=== PATIENT | female | born 1985 | race Caucasian/White ===

== ENCOUNTER 2023-09-04 12:48 | Inpatient (IN) ==
[2023-09-04] MEDS ORDERED: OXYTOCIN 30 UNITS/NSS 30 UNITS/500 ML BAG IV PRN (13:08)
[2023-09-04] MEDS ORDERED: LIDOCAINE 1% LOCAL 20 ML VIAL INFIL PRN (13:08)
[2023-09-04] MEDS ORDERED: DINOPROSTONE 10 MG INSERT PV ONE (13:08)
[2023-09-04] MEDS ORDERED: LACTATED RINGER'S 1,000 ML IV PRN (13:08)
[2023-09-04 13:37] LABS: Hematocrit (blood only) 34.7 % (37.0-47.0); Hemoglobin 12.3 g/dl (12.0-16.0); Mean Corpuscular Hemoglobin 30.7 pg (25.0-34.0); Mean Corpuscular Hgb Conc 35.4 g/dL (32.0-36.0); Mean Corpuscular Volume 86.5 fL (80.0-100.0); Mean Platelet Volume 9.8 fL (9.4-12.4); Platelet Count 273 K/uL (130-400); RDW Coefficient of Variation 13.6 % (11.5-14.5); RDW Standard Deviation 42.5 fL (36.4-46.3); Red Blood Count 4.01 M/uL (4.20-5.40); White Blood Count 12.02 K/ul (4.8-10.8)
[2023-09-04 13:54] LABS: Albumin Globulin Ratio 1.3 (0.9-2); Albumin Level 3.4 gm/dl (3.4-5.0); BUN Creatinine Ratio 12.5 (10-20); Bilirubin,Total 0.5 mg/dl (0.2-1.0); Calcium 8.6 mg/dl (8.6-10.3); Creatinine Clr Calc Pharmacy 171.6 ml/min; Est GFR (African American) 133.1 ml/min; Est GFR (Non-African American) 114.8 ml/min; Globulin 2.7 gm/dl (2.5-4.0); Potassium 3.7 mmol/L (3.5-5.1); Total Protein 6.1 gm/dl (6.0-8.3)
--- NOTE | 2023-09-04 14:45 | History & Physical Report ---
Date of Service September 04, 2023 Assessment & Plan (1) Chronic hypertension during , antepartum: Plan: 37-year-old -0-1-2 at 37 weeks and 3 days of gestation who has a history of chronic hypertension, on labetalol, GDM A1, diet-controlled gestational michelle betes, PE in 2017 history of macrosomic babies, current baby large for gestational age. She was in the office for routine OB visit and US for growth, her blood pressure was elevated and KEMI was 3.1 cm. Vital signs stable afebrile, heart rate reassuring, Cervix unfavorable, GBS positive, Plan to admit, monitor, labs, cervical ripening with Cervidil, recommended SCDs while in the bed patient desires to ambulate is much as she can, start penicillin when in labor Continue to monitor closely (2) Gestational diabetes mellitus (GDM): (3) LGA (large for gestational age) fetus affecting mother, antepartum: (4) Oligohydramnios: (5) Obesity affecting in third trimester, antepartum: (6) Factor 5 Leiden mutation, heterozygous: (7) History of pulmonary embolism: Admission and Anticipated Discharge Date Admission Date: September 04, 2023 History of Present Illness Primary Care Provider: NO PCP Patient is a 37-year-old -0-1-2 at 37 weeks and 3 days of gestation who has a history of chronic hypertension, on labetalol, GDM A1, diet-controlled gestational diabetes, PE in 2017 history of macrosomic babies, current baby large for gestational age. She was in the office for routine OB visit and US for growth, her blood pressure was elevated and KEMI was 3.1 cm. She had no symptoms of headache, change in her vision, nausea vomiting, epigastric or right upper quadrant pain, chest pain, shortness of breath. She was sent here for IOL. EFW was 3700+ gr She denies contractions, leakage of fluid, vaginal bleeding. She reports good movements. Her has been complicated by, 1. Chronic hypertension, on labetalol 100 mg 3 times daily, 2. GDM A1, diet-controlled, 3. History of macrosomia, delivered 10.15 ounce baby in 2008, current infant with estimated weight of 3700 g today, 4. History of PE in 2017, patient was told cannot confirm or rule out PE at the ER, she has not had anything else since then, she has been on Lovenox and was recently switched to heparin 10,000 units twice a day last dose was given last night, 5. GBS + 6. Obesity during Allergies Allergy/AdvReac Type Severity Reaction Status Date / Time No Known Allergies Allergy Unknown NONE Verified 08/29/09 20:44 Home Medications Medication Instructions Recorded Confirmed Type Multivit/Min/Iron/Fol Ac/Pren 1 tab PO DAILY ##0 08/29/09 History ( Vitamin) heparin (porcine) 10,000 unit/mL 10,000 unit subcut Q12H 09/04/23 09/04/23 History injection solution labetalol 100 mg tablet 200 mg PO BID 09/04/23 09/04/23 History Patient History Medical History (Updated 09/04/23 @ 14:43 by Lindsay Castelan MD) Factor 5 Leiden mutation, heterozygous Chronic hypertension affecting Social History Smoking Status: Never smoker Second Hand Exposure: No; Do You Dip or Chew Tobacco: No; Tobacco Cessation Education Requested by Patient: No Hx Alcohol Use: No Hx Substance Use: No Preferred Language: Surinamese Communication Ability: Effective 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 Beliefs That Will Affect Care: None marital status: Single Current Living Situation Comment: [facility], 4 children Other Information That Helps Us Care for You: No Feels Safe at Home: Yes Safety Concerns: Feels Safe At This Time Assistive Devices: Contacts OB History Full-term 's in 2006, 2008, no history of shoulder dysplasia [employer] History No history of STDs, no history of chlamydia, venular, herpes Review of Systems as per Subjective / HPI Physical Exam Constitutional: WD/WN, vitals as above well developed, well nourished, + obese and comfortable Gastrointestinal (Abdomen): normal bowel sounds, soft, nontender, no hepatosplenomegaly (Gravid) Genitourinary: normal external appearance OB Exam Abdomen: + vertex Manual OB Exam: + cervical dilation 1 cm, + cervical effacement 20% and + station high OB Exam Monitor Tracing: + external uterine monitor used and + category I Results & Data Vital Signs (Past 12 Hours) Vital Signs Temp Pulse Resp BP 09/04/23 13:20 37.0 C 16 133/83 09/04/23 13:12 82 133/83 (2) Gestational diabetes mellitus (GDM) Gestational diabetes mellitus control: diet-controlled Trimester: third trimester Qualified Code(s): O24.410 - Gestational diabetes mellitus in , diet controlled
[2023-09-04] MEDS: LABETALOL HCL 200 MG TAB PO SCH (21:12)
--- OUTSIDE RECORDS SUMMARY | 2023-09-04 21:29 | External Medical Summary | Summary of Care ---
Author Name Unknown Organization [facility] Address [address] [place] [address] Phone [phone] Care Team Providers Care Sign Carpenter Name Role Phone Florence Fajardo PA-C Primary Care Provider [phone] Encounter Details Date Type Department Care Team (Late st Contact Info) Description 09/04/2023 8:00 AM EST Office Visit [facility], [address] [place] [address] Shereen Koo, DO [address] [place], [place] [id number] Excessive growth affecting management of in third trimester, single or unspecified fetus*; Multigravida of advanced maternal age in third trimester; Chronic hypertension in ; Diet controlled gestational diabetes mellitus (GDM), antepartum Allergies Active Allergy Reactions Criticality Noted Date Comments Bee Venom 11/30/2014 documented as of this encounter (statuses as of 09/04/2023) Medications Medication Sig Dispensed Refills Start Date End Date Status 19 29-1 MG Oral Tablet Chewable Take by mouth. 0 Active Aspirin 81 MG Oral Tablet Chewable (Aspirin 81)Indications:Sup ervision of high-risk , unspecified trimester,Obesity in , antepartum Take 1 Tablet by mouth in the morning. Start taking this medication at 12 weeks gestation and continue until delivery. 3 03/28/2023 Active Comfort Touch BP Cuff/LargeIndicati ons:HTN, goal below 140/90 Use as directed. 1 Each 0 03/28/2023 Active OneTouch Verio Flex System w/Device KitIndications:Ges tational diabetes mellitus (GDM) in second trimester, gestational diabetes method of control unspecified Use to test blood sugars 4 times daily (fasting, 1 hour after breakfast, lunch, and dinner) 1 Kit 0 04/25/2023 Active Omeprazole 20 MG Oral Capsule Delayed Release (PriLOSEC) Take 1 Capsule by mouth in the morning. 30 minutes before having anything to eat.. 90 Capsule 0 06/09/2023 Active Aspirin 81 MG Oral Capsule Take by mouth. 0 Active FreeStyle Test In Vitro Strip (Glucose Blood)Indications: Diet controlled gestational diabetes mellitus (GDM) in third trimester Use to test blood sugar 4 times a day (fasting, one hour after breakfast, lunch, and dinner) 200 Strip 3 07/14/2023 Active FreeStyle Unistick II LancetsIndications :Diet controlled gestational diabetes mellitus (GDM) in third trimester Use to test blood sugar 4 times a day (fasting, one hour after breakfast, lunch, and dinner) 200 Each 3 07/14/2023 Active Enoxaparin Sodium 40 MG/0.4ML Injection Solution Prefilled Syringe (Lovenox)Indicatio ns:History of pulmonary embolism,Factor V Leiden mutation affecting (HCC) Inject 1 syringe every 12 hours as instructed by the [facility] 24 mL 5 07/24/2023 Active Additional Information Patient not taking.Reported on 09/04/2023 Heparin Sodium (Porcine) 07287 UNIT/ML Injection SolutionIndication s:History of pulmonary embolism,Factor V Leiden mutation affecting (HCC) Inject 1 mL under the skin in the morning and 1 mL before bedtime. As instructed by the [facility]madin [facility]. 60 mL 1 08/22/2023 Active Syringe/Needle (Disp) 26G X 5/8" 3 MLIndications:Hist ory of pulmonary embolism,Factor V Leiden mutation affecting (HCC) Use as instructed to inject heparin twice daily 60 Each 1 08/22/2023 Active Labetalol HCl 100 MG Oral Tablet (Normodyne)Indicat ions:Supervision of high-risk , unspecified trimester,Chronic hypertension in ,HTN, goal below 140/90 Take 1 Tablet by mouth in the morning and 1 Tablet at noon and 1 Tablet before bedtime. 60 Tablet 6 08/27/2023 Active documented as of this encounter (statuses as of 09/04/2023) Active Problems Problem Noted Date Diagnosed Date LGA (large for gestational a ge) fetus affecting mother, antepartum 09/04/2023 GBS (group B Streptococcus c arrier), +RV culture, currently 08/31/2023 LGA (large for gestational a ge) fetus affecting management of mother 07/11/2023 Overview: EFW and AC >99th %ile at 29 weeks Last Assessment & Plan: EFW today at 91%ile, 3701g. BPP 05/06. However, KEMI decreased at 3.2 cm with MPV just at 2 cm. Based on advanced gestational age, additional comorbidities, and now low KEMI, recommend delivery in the next 1-2 days. Case discussed with Dr. Thurman, who has an appt with the patient to follow MFM scan. Renee is comfortable with this plan. GDM (gestational diabetes mellitus) 04/25/2023 Overview: Diagnosed at 18 weeks Nutrition consult scheduled 07/30/23 [facility] Lab Results Component Value Date/Time 50-G GESTATIONAL GLUCOSE, 1 HOUR - [facility] 130 (H) 04/14/2023 02:29 PM 100-G GESTATIONAL GLUCOSE, 1 HOUR - [facility] 193 (H) 04/25/2023 09:35 AM 100-G GESTATIONAL GLUCOSE, 2 HOUR - [facility] 177 (H) 04/25/2023 10:34 AM 100-G GESTATIONAL GLUCOSE, 3 HOUR - [facility] 105 04/25/2023 11:33 AM 100-G GESTATIONAL GLUCOSE, FASTING - [facility] 98 (H) 04/25/2023 08:30 AM 07/14/23 ordered hemoglobin A1c 07/14/23: MFM ADAPT consult complete. Enrolled in [employer]. Instructions provided to report blood sugars each week for MFM review 07/28/23-stable 08/05/23- hardly any numbers reported- msged sent to patient 08/11/23- not many numbers reported, msged patient 08/18/23- msged patient for sugars 08/25/23- msged patient to send sugars 09/01/23: RPM not reporting blood sugars to [facility] for review; message sent to OB provider Last Assessment & Plan: Nor reporting sugars. Chronic hypertension in 03/28/2023 Overview: Patient states her BP has been up and down since teenage years In past , hospital social worker noted that BP was increased when awake, but lowered when sleeping Officially diagnosed in 2018, but has never been on any BP medication Currently checking home BP daily-- running 138/86 On Labetalol HCl 100 mg BID BP Readings from Last 8 Encounters: 03/28/23 158/96 02/20/23 152/92 03/15/22 128/70 09/09/19 163/93 05/07/19 134/96 11/08/18 140/90 11/17/17 130/86 11/13/17 144/84 Last Assessment & Plan: Considerations: Women with chronic hypertension during are at significantly increased risk for morbidity. Signs and symptoms of superimposed pre-eclampsia were reviewed; instructed patient to contact primary OB care provider if these symptoms occur. Recommendations: Obtain baseline lab work LAURA (if not already done) with assessment of proteinuria (24-hour urine protein or zzhzibg-te-nrpfkroori ratio) and CBC, serum AST/ALT/creatinine. If patient has had hypertension for 10 years or more, obtain an EKG and eye exam (if not performed within the past year). Recommend initiation of aspirin (81mg) daily, from 13 weeks until delivery, to decrease the risk of superimposed preeclampsia. Daily home blood pressure monitoring, especially in the second half of the . o It may be useful to have the patient validate their home device with their primary OB care provider's office. Patients with BP less than 140/90 maintained with antihypertensives should continue medication during . Discontinuation of SUNG inhibitors or angiotensin type II receptor antagonists under the guidance of the primary care physician prior to conception of or upon knowledge of . Initiate or adjust antihypertensive medication if BP is 140/90 or greater on at least two occasions at least 4 hours apart and refer patient back to Maternal- Medicine. Titrate medication to maintain blood pressure in a goal range 120-140/70-90. o Labetalol and Nifedipine are considered safe for use in and these agents are considered as first-line therapy when indicated. Maternal Medicine ultrasound for anatomy at 19-20 weeks. surveillance as follows: o If being treated with anti-hypertensives: - Maternal- Medicine ultrasound for growth every 4 weeks starting at 24-26 weeks - surveillance weekly starting at 32 weeks gestation Delivery should be individualized based on blood pressure control and assessment of patient risk and is indicated as follows: For those on anti-hypertensive medications: - Between 37 0/7 and 39 6/7 weeks Supervision of high-risk , unspecified trimester 02/20/2023 AMA (advanced maternal age) multigravida 35+ Overview: Patient will be age 37 at delivery NIPT: declines Genetic referral: declines at this time MFM anatomy scan scheduled 05/02/2023 Last Assessment & Plan: CONSIDERATIONS: We reviewed the most pertinent aspects of the following: Advanced maternal age (AMA) refers to a woman with a dougherty who will be at the age of 35 or older at the estimated time of delivery and may be associated with increased morbidity. After discussion of the genetic screening/testing options, the patient declines genetic screening and testing. In addition to the risk of chromosomal abnormalities, there is an increased risk of congenital/structural anomalies. RECOMMENDATIONS: Recommend MFM anatomy ultrasound at 19-20 weeks gestation. Factor V Leiden mutation affecting Overview: Images from the original note were not included. 10/28/2017: Patient reports she was hospitalized for pneumonia. She possibly had a pulmonary embolism while hospitalized. Renee's mother mentioned that Renee's maternal uncle has Leiden Factor V Patient was tested at that time and was positive for Leiden Factor V mutation 11/04/2017: FACTOR V LEIDEN,PCR POSITIVE HETEROZYGOUS Comment: INTERPRETATION: Factor V Leiden mutation detected by real-time PCR (Amplified Probe). The patient is heterozygous. Molecular analysis has detected the [id number] mutation associated with factor V Leiden. This mutation eliminates the protein C cleavage-site in factor V, thus altering the coagulation cascade. Resistance to activated protein C is inherited as an autosomal dominant trait. Heterozygotes carry a 5-10 fold increase risk of venous thrombosis, while homozygotes carry a 50-100 fold increased risk. Laboratory recommendation is that the patient seeks follow-up by a [facility] and/or genetic counseling for further evaluation. This assay was verified and performance characteristics determined by the [facility]. This test is used for clinical purposes. .............................................. Ref:Emma Burton,Jose Enrique Cabrales,Shaheen Gilliam,Arianna Crockett, Kaelyn Lilly,YaneR. Molecular Detection of a Common Mutation in Coagulation Factor V Causing Thrombosis via Hereditary Resistance to Activated Protein C. Diagn. Mol. Pathol. 4(3): 191-197, 1994. Last Assessment & Plan: Renee is taking Lovenox daily. Obesity in , antepartum 02/20/2023 Overview: BMI: 40.4 NST 34 wks, deliver by GUILLERMO, growth q4 Class 3 obesity Taking ASA 81mg PO daily Early 1 hour GTT ordered but not yet completed No results found for: 50-G GESTATIONAL GLUCOSE, 100-G GESTATIONAL GLUCOSE, HEMOGLOBIN A1C - [facility] Baseline Preeclampsia Labs Lab Results Component Value Date/Time PLATELET AUTO - [facility] 344 02/20/2023 02:53 PM CREATININE - [facility] 0.6 02/20/2023 02:53 PM AST - [facility] 16 02/20/2023 02:53 PM ALT - [facility] 28 02/20/2023 02:53 PM PROTEIN/ CREATININE RATIO, URINE - [facility] 59 02/20/2023 03:10 PM Last Assessment & Plan: I reviewed the ultrasound. The overall estimated weight is consistent with the 97th percentile for the gestational age and the anatomy that was visualized appears unremarkable. The amniotic fluid volume is normal at 9 cm. The biophysical profile is 6/8, -2 for no breathing. The patient had an elevated blood pressure and she was sent to [facility] for evaluation. Because of fetus is large for gestational age, we will bring her back in 5 weeks when she will be 38 weeks of gestation for an evaluation of growth. History of macrosomia in inf ant in prior , currently 02/20/2023 Overview: First : 4338g, Second : 4961g Denies hx of GDM or shoulder dystocia, both Last Assessment & Plan: EFW today at 99%ile. Needs GDM management. Factor V Leiden mutation 11/10/2017 Multiple atypical nevi 01/12/2015 Overview: ICD-10 update of inactive term Bee sting allergy History of pulmonary embolism Overview: Pt questions this diagnosis. CT 10/2017 shows "1. Small nonocclusive filling defect noted in the right upper lobe pulmonary artery branch. Additional small pulmonary emboli cannot be excluded. Contrast opacification of the pulmonary arteries is suboptimal. 2. Bilateral lower lobe patchy alveolar consolidation. In appropriate clinical setting, pneumonia is a consideration. 3. Patchy ground-glass opacity in the right upper lobe and right middle lobe. Diagnostic considerations would include infectious or inflammatory etiology." Repeat CT 11/2017 negative for pulmonary embolism. Was on Xarelto following hospital discharge in 2018; discontinued this soon after We recommend prophylactic anticoagulant therapy during antepartum period of any subsequent pregnancies. Prophylactic dose anticoagulation is recommended for 6-8 weeks . We therefore recommend thrombophilia workup if not already done (to include Factor V Leiden mutation, Prothrombin gene mutation, free Protein S activity, functional Protein C activity, Antithrombin III activity, IgG and IgM Anticardiolipin antibodies, IgG and IgM anti beta2 glycoprotein antibodies, Lupus anticoagulant). Last Assessment & Plan: CONSIDERATIONS: Explained that women who have a history of VTE in a previous , a history of VTE while taking estrogen-containing contraception or an unprovoked VTE with no hypercoagulable state may have as high as a 6% risk for developing VTE in a subsequent . RECOMMENDATIONS: We recommend prophylactic anticoagulant therapy during antepartum period of any subsequent pregnancies. Prophylactic dose anticoagulation is recommended for 6-8 weeks . We therefore recommend thrombophilia workup if not already done (to include Factor V Leiden mutation, Prothrombin gene mutation, free Protein S activity, functional Protein C activity, Antithrombin III activity, IgG and IgM Anticardiolipin antibodies, IgG and IgM anti beta2 glycoprotein antibodies, Lupus anticoagulant). Estimated Date of Delivery Comme nts Yes 09/22/2023 Based on last me nstrual period of 12/16/2022 (Exact Date) documented as of this encounter (statuses as of 09/04/2023) Resolved Problems Problem Noted Date Diagnosed Date Resolved Date Glucose intolerance of 04/15/2023 04/25/2023 Supervision of high risk pre gnancy in second trimester 04/02/2023 04/02/2023 Pulmonary embolism and infarction 11/03/2017 05/07/2019 Pneumonia of both lungs due to infectious organism 11/03/2017 03/15/2022 Gastroesophageal reflux disease 11/03/2017 03/15/2022 HTN, goal below 140/90 11/03/201703/15 documented as of this encounter (statuses as of 09/04/2023) Immunizations Name Administration Dates Next Due DTaP Dipth/Tet/Acell Pertussis (Infanrix), Peds 02/29/1992,06/18/1988,06/13/1987, 987,01/25/1987 IPV - Polio Virus Vaccine (Inact) 1991,06/18/1988,06/13/1987, 987,01/25/1987 Measles Vaccine 02/29/1992,03/01/1988 Mumps Vaccine 02/29/1992,03/01/1988 PPD 03/15/2022, 6,05/16/2015, 992,09/18/1987 Rubella Vaccine 02/29/1992,03/01/1988 documented as of this encounter Social History Tobacco Use Types Packs/Day Years Used Date Smoking Tobacco: Never Smokeless Tobacco: Never Alcohol Use Standard Drinks/Week Comments Not Currently 0 (1 standard drink = 0.6 oz pur e alcohol) PHQ-2 Answer Date Recorded PHQ-2 Score 0 08/02/2018 Hunger Vital Sign Answer Date Recorded Within the past 12 months, y ou worried that your food would run out before you got the money to buy more. Never true 02/21/20 23 Within the past 12 months, t he food you bought just didn't last and you didn't have money to get more. Never true 02/20/2023 Lackey Depression Scale Answer Date Recorded Lackey Depression Scale Total 1 02/20/2023 The thought of harming myself has occurred to me . Never 02/20/2023 Estimated Date of Delivery Comme nts Yes 09/22/2023 Based on last me nstrual period of 12/16/2022 (Exact Date) Sex and Gender Information Value Date Recorded Sex Assigned at Female 02/20/2023 2:04 PM EDT Gender Identity Female 02/20/2023 2:04 PM EDT Sexual Orientation Straight 02/20/2023 2: 04 PM EDT Job Start Date Occupation Industry Not on file Not on file Not on file documented as of this encounter Functional Status Functional Status Response Date of Assess ment Are you deaf or do you have serious difficulty h earing? No 10/28/2017 Are you blind or do you have serious difficulty seeing, even when wearing glasses? No 10/28/2017 Do you have serious difficul ty walking or climbing stairs? (5 years old or older) No 10/28/2017 Do you have difficulty dress ing or bathing? (5 years old or older) No 10/28/2017 Because of a physical, menta l, or emotional condition, do you have difficulty doing errands alone such as visiting a doctor s office or shopping? (15 years old or older) No 10/28/19 18 Cognitive Status Response Date of Assessm ent Because of a physical, menta l, or emotional condition, do you have serious difficulty concentrating, remembering, or making decisions? (5 years old or older) No 10/28/2017 documented as of this encounter Progress Notes * Shereen Koo, DO - 09/04/2023 9:13 AM EST MATERNAL MEDICINE VISIT Patient location: CLINIC. I was not in a hospital or clinic location. After connecting through televideo, patient was verified with two unique identifiers. Patient (or authorized legal training representative) was then informed that this was a Telemedicine visit and being conducted confidentially over secure lines. My office door was closed. No one else was in the room with me. Patient acknowledged consent and understanding of privacy and security of the Telemedicine visit, and gave permission to have atelemedicine presenter stay in the room in order to assist with the history and to conduct the examas needed. I informed the patient that I have reviewed their record in [facility] and presented the opportunity for them to ask any questions regarding the visit today. The patient agreed to participate. Renee Caldwell presented today at 37w3d for an ultrasound and follow-up of her high risk . She was seen for the following indications: Problem List Items Addressed This Visit Endocrine/Metabolic GDM (gestational diabetes mellitus) Nor reporting sugars. Circulatory Chronic hypertension in Other AMA (advanced maternal age) multigravida 35+ LGA (large for gestational age) fetus affecting management of mother - Primary EFW today at 91%ile, 3701g. BPP 05/06. However, KEMI decreased at 3.2 cm with MPV just at 2 cm. Based on advanced gestational age, additional comorbidities, and now low KEMI, recommend delivery in the next 1-2 days. Case discussed with Dr. Thurman, who has an appt with the patient to follow MFM scan. Renee is comfortable with this plan. We reviewed today's ultrasound findings. Patient presented for growth assessment at 37w 4d. Large AC noted at >99% with overall EFW of 3701 g at 91%. KEMI 3.2 cm. Cephalic presentation. (For full details, please refer to ultrasound report provided separately). Ms. Caldwell's questions were answered to her satisfaction. She was advised to contact our officeor her OB provider for any additional questions regarding her . RECOMMENDATIONS: Follow up with MFM for ultrasound as clinically indicated. Delivery in the next 1-2 days. Thank you for allowing us to participate in the care of this patient. Please call with any questions. I spent a total of 25 minutes on the date of service in preparation, delivery, and documentation ofthe care provided to Renee Caldwell excluding any time spent in the performance of separately billed services. Shereen Koo DO 09/04/2023 9:13 AM documented in this encounter Miscellaneous Notes * Assessment & Plan Note - Shereen Koo DO - 09/04/2023 9:12 AM EST Associated Problem(s): GDM (gestational diabetes mellitus) Nor reporting sugars. * Assessment & Plan Note - Shereen Koo DO - 09/04/2023 9:12 AM EST Associated Problem(s): LGA (large for gestational age) fetus affecting management of mother EFW today at 91%ile, 3701g. BPP 05/06. However, KEMI decreased at 3.2 cm with MPV just at 2 cm. Based on advanced gestational age, additional comorbidities, and now low KEMI, recommend delivery in the next 1-2 days. Case discussed with Dr. Thurman, who has an appt with the patient to follow MFM scan. Renee is comfortable with this plan. documented in this encounter Plan of Treatment Upcoming Encounters Date Type Department Care Team (Late st Contact Info) Description 09/04/2023 10:30 AM EST Office Visit [facility] [address] [place] [address] Erin Thurman MD [address] [place] [address] [place] [id number] 37 weeks gestation of *; High-risk in third trimester; Chronic hypertension in ; HTN, goal below 140/90; History of pulmonary embolism; Multigravida of advanced maternal age in third trimester; Factor V Leiden mutation affecting (HCC); Obesity in , antepartum; History of macrosomia in infant in prior , currently ; Diet controlled gestational diabetes mellitus (GDM) in third trimester; Excessive growth affecting management of , antepartum, single or unspecified fetus; GBS (group B Streptococcus carrier), +RV culture, currently 09/09/2023 1:45 PM EST [facility] [address] [place] [address] Carmen Vyas CRNP [address] [place] [address] [facility] [address] [place] [address] 09/16/2023 1:45 PM EST Office Visit Gynecology/Obstetri Libra Issa [address] [place], [place] [address] Carmen Vyas CRNP [address] [place] [address] [facility] [address] [place], [place] [address] 09/23/2023 9:45 AM EST Office Visit Gynecology/Obstetri L[facility]ira Issa [address] [place] [address] Carmen Vyas CRNP [address] [place] [address] [facility] [address] [place], [place] [address] Health Maintenance Due Date Last Done Comments Hepatitis B (1 of 3 - 3-dose series) 1986 COVID-19 Vaccine (#1) 05/25/1987 DTaP,Tdap,and Td Vaccines (6 - Tdap) 1997 02/29/1992, 06/18/1988, 06/13/1987, Additional history exists HPV/Co-Test 2016 Depression Screening 09/30/2018 09/30/2017 Influenza Vaccine (FLU shot) (#1) 2023 11/10/2017 (Declined) GFR 08/27/2024 08/27/2023, 11/0 05/2023, 02/20/2023, Additional history exists Cervical Cancer Screening 03/15/2025 Pap Smear 03/15/2025 03/15/2022, 04/11/2016 Diabetes Screening 08/27/2026 08/27/2023, 1 10/07/2022, 08/07/2023, Additional history exists GARDASIL-HPV IMMUNIZATION SERIES Aged Out No longer eligible based on patient's age to complete this topic MENINGOCOCCAL (MENACTRA/MENVEO) Aged Out No longer eligible based on patient's age to complete this topic Pneumococcal Vaccine: Pediatrics (0 to 5 Years) and At-Risk Patients (6 to 64 Years) Aged Out No longer eligible based on patient's age to complete this topic documented as of this encounter Medical Devices Not on filedocumented as of this encounter Visit Diagnoses Diagnosis 37 weeks gestation of - Primary state, incidental High-risk in third trimester Chronic hypertension in Benign essential hypertension complicating , childbirth, and the puerperium, unspecified as to episode of care HTN, goal below 140/90 Unspecified essential hypertension History of pulmonary embolism Personal history of pulmonary embolism Multigravida of advanced maternal age in third trimester Factor V Leiden mutation affecting (HCC) Obesity in , antepartum Obesity complicating , childbirth, or the puerperium, antepartum condition or complication History of macrosomia in in prior , currently with other poor obstetric history Diet controlled gestational diabetes mellitus (GDM) in third trimester Excessive growth affecting management of , antepartum, single or unspecified fetus GBS (group B Streptococcus carrier), +RV culture, currently Supervision of other high-risk Excessive growth affecting management of in third trimester, single or unspecified fetus- Primary Multigravida of advanced maternal age in third trimester Chronic hypertension in Benign essential hypertension complicating , childbirth, and the puerperium, unspecified as to episode of care Diet controlled gestational diabetes mellitus (GDM), antepartum documented in this encounter Advance Directives Latest Code Status on File Code Status Date Activated Date Inactivated Comments Full Code 10/28/2017 4:28 PM 11/01/2017 5:21 PM This o rder reflects the patients wishes and were consensually agreed upon. Question Answer Comments Discussion of Advance Directives occurred with: Not Discussed Does the patient have a Living Will? No Does the patient have Health Care Power of Director Of Cath Lab? No Care Teams Sign Carpenter Relationship Specialty Start Date End Date Florence Fajardo PA-C [address] [address] [place] [phone] PCP - General Physician Goldsmith Apprentice 09/09/19 documented as of this encounter
--- OUTSIDE RECORDS SUMMARY | 2023-09-04 21:29 | External Medical Summary | Summary of Care ---
Author Name Unknown Organization [facility] Address [address] [place] [address] Phone [phone] Care Team Providers Care Steward/Stewardess Chief Cargo Vessel Name Role Phone Florence Fajardo PA-C Primary Care Provider [phone]- [phone] Encounter Details Date Type Department Care Team ([facility] st Contact Info) Description 09/01/2023 Telephone Traffic Agent Obstetrics Maternal Medicine, [place] [address] [facility] [address] [place] [address] Ava Clifton CRNP [address] [facility] [address] [place] [address] Allergies Active Allergy Reactions Criticality Noted Date Comments Bee Venom 11/30/2014 documented as of this encounter (statuses as of 09/01/2023) Medications Medication Sig Dispensed Refills Start Date End Date Status 19 29-1 MG Oral Tablet Chewable Take by mouth. 0 Active Comfort Touch BP Cuff/LargeIndicati ons:HTN, goal [...] every 12 hours as instructed by the [facility] 24 mL 5 07/24/2023 Active Heparin Sodium (Porcine) 78445 UNIT/ML Injection SolutionIndication s:History of pulmonary embolism,Factor V Leiden mutation affecting (HCC) Inject 1 mL under the skin in the morning and 1 mL before bedtime. As instructed by the [facility]. 60 mL 1 08/22/2023 Active [...] as of this encounter (statuses as of 09/01/2023) Active Problems Problem Noted Date Diagnosed Date GBS (group B Streptococcus c arrier), +RV culture, currently 08/31/2023 LGA (large for gestational a ge) fetus affecting management of mother 07/11/2023 Overview: EFW and AC >99th %ile at 29 weeks GDM (gestational diabetes mellitus) 04/25/2023 Overview: Diagnosed at 18 weeks Nutrition consult scheduled 07/30/23 Has Freestyle [place] Light Lab Results Component Value Date/Time 50-G [...] 08:30 AM 07/14/23 ordered hemoglobin A1c 07/14/23: M ADAPT consult complete. Enrolled in Current Health. Instructions provided to report blood sugars each week for MFM review 07/28/23-stable 08/05/23- hardly any numbers reported- msged sent to patient 08/11/23- not many numbers reported, msged patient 08/18/23- msged patient for sugars 08/25/23- msged patient to send sugars 09/01/23: RPM not reporting blood sugars to [facility] for review; message sent to OB provider Last Assessment & Plan: CONSIDERATIONS: Reviewed etiology and risks associated with gestational diabetes mellitus (GDM), including risks to , fetus, and maternal progression to Type 2 DM. Instructed on proper use of glucometer; supplies ordered, if indicated. Advised that life-long screening for diabetes is recommended every 1-3 years. RECOMMENDATIONS: Recommend monitoring blood sugars with daily fasting blood sugar (maintained at less than or equal to 95) and 1 hour postprandial measurements (maintained at less than or equal to 140). Medications should be adjusted to maintain these target values. Report levels to MFM (Maternal- Medicine) weekly. Recommend nutrition consult with RDN (Registered Dietitian Digital Program Manager). Lifestyle changes are also indicated including optimizing gestational weight gain and physical activity of 30 minutes per day, if not otherwise contraindicated in . Insulin is preferred if medications are indicated to optimize euglycemia. Metformin (preferred over glyburide) may also be used in some circumstances. Reviewed the risks and benefits of each. Recommend hemoglobin A1c testing now if diagnosed with GDM prior to 24 weeks as there is potential for pre-existing diabetes. If result is 6.5% or greater, then will diagnose with overt Type 2 DM and treat as pre-existing diabetes. If compliance later in gestation is question, a HBA1c can be assessed with a goal of less than 6%. Recommend echocardiography if hemoglobin A1c greater than 6.5%. Recommend ultrasound, surveillance and delivery as follows: A1GDM, delivery should be accomplished by EDC due to chronic hypertension A2GDM, recommend growth assessment with MFM every 4 weeks, initiate surveillance at 32 weeks and continue until delivery at 39 weeks. Recommend intrapartum monitoring every 1-2 hours (A2GDM) or every 4 hours (A1GDM) and treat with insulin if indicated. Recommend 2-hour glucose tolerance testing with 75-gram glucose load 6-8 weeks . Chronic hypertension in 03/28/2023 Overview: Patient states her BP has been up and down since teenage years In past , caddy/caddie supervisor noted that BP was increased when awake, [...] assessment of proteinuria (24-hour urine protein or qbtkyeu-zp-mhqisfaozh ratio) and CBC, serum AST/ALT/creatinine. If patient [...] that the patient seeks follow-up by a Browning Processor and/or genetic counseling for further evaluation. This assay was verified and performance characteristics determined by the [facility]. This test is used for clinical purposes. [...] blood pressure and she was sent to [facility] for evaluation. Because of fetus is [...] as of this encounter (statuses as of 09/01/2023) Resolved Problems Problem Noted Date Diagnosed Date Resolved Date Glucose intolerance of 04/15/2023 04/25/2023 Supervision of high risk pre gnancy in second trimester 04/02/2023 04/02/2023 Pulmonary embolism and infarction 11/03/2017 05/07/2019 Pneumonia of both lungs due to infectious organism 11/03/2017 03/15/2022 Gastroesophageal reflux disease 11/03/2017 03/15/2022 HTN, goal below 140/90 11/03/201703/15 documented as of this encounter (statuses as of 09/01/2023) Immunizations Name Administration Dates Next Due DTaP [...] money to get more. Never true 02/20/2023 [place] Depression Scale Answer Date Recorded [place] Depression Scale Total 1 02/20/2023 The thought [...] No 10/28/2017 documented as of this encounter Miscellaneous Notes * Telephone Encounter - Ava Clifton CRNP - 09/01/2023 3:37 PM EST Images from the original note were not included. Ms. Caldwell last reported her blood sugars to [facility] for review on 08/25/23 (1 value) and previously 08/19/23 (1 value). We have reached out to her numerous times. Can you please ask her to update her blood sugars for [facility] review. Thank you, YANA Diallo 09/01/2023 3:39 PM documented in this encounter Plan of Treatment Upcoming Encounters Date Type Department Care Team (Late st Contact Info) Description 09/04/2023 6:45 AM EST Anticoagulation Pharmacy Call Center [phone] [facility] [place] [address] [facility] [address] [facility] [place] [address] 09/04/2023 8:00 AM EST Imaging Maternal Medicine Imaging, [facility] [address] [place] [phone] 09/04/2023 10:30 AM EST Office Visit [facility] [address] [place] [address] Erin Thurman MD [address] [place] [address] [place] [address] 09/09/2023 1:45 PM EST Office Visit Gynecology/Obstetrics [facility] [address] [place] [address] Carmen Vyas CRNP [address] [place] [address] Luis Manuel Non Stress Tests Mary [address] [place] [address] 09/16/2023 1:45 PM EST Office Visit Gynecology/Obstetrics [facility] [address] [place] [address] Carmen Vyas CRNP [address] [place] [address] Luis Manuel, Non Stress Tests Mary [address] [place], [place] [address] 09/23/2023 9:45 AM EST Office Visit Gynecology/Obstetrics [facility] [address] [place] [address] Carmen Vyas CRNP [address] [place] [address] Luis Manuel, Non Stress Tests Mary [address] [place] [address] Health Maintenance Due Date Last Done Comments Hepatitis B (1 of 3 - 3-dose series) 1986 COVID-19 Vaccine (#1) 05/25/1987 DTaP,Tdap,and Td Vaccines (6 - Tdap) 1997 02/29/1992, 06/18/1988, 06/13/1987, Additional history exists HPV/Co-Test 2016 Depression Screening 09/30/2018 09/30/2017 Influenza Vaccine (FLU shot) (#1) 2023 11/10/2017 (Declined) GFR 08/27/2024 08/27/2023, 05/2023, 02/20/2023, Additional history exists Cervical Cancer [...] Not on filedocumented as of this encounter Advance Directives Latest Code Status on File Code Status Date Activated Date Inactivated Comments Full Code 10/28/2017 4:28 PM 11/01/2017 5:21 PM This o rder reflects the patients wishes and were consensually agreed upon. Question Answer Comments Discussion of Advance Directives occurred with: Not Discussed Does the patient have a Living Will? No Does the patient have Health Care Power of Telegraphic Service Dispatcher? No Care Teams Steward/Stewardess Chief Cargo Vessel Relationship Specialty Start Date End Date Florence Fajardo PA-C [address] [address] [place] [address] PCP - General Physician Division Supervisor 09/09/19 documented as of this encounter
--- OUTSIDE RECORDS SUMMARY | 2023-09-04 21:29 | External Medical Summary | Summary of Care ---
Author Name Unknown Organization [facility] Address [address] [place] [address] Phone [phone] Care Team Providers Care Resin Coater Name Role Phone Florence Fajardo PA-C Primary Care Provider +1- [phone] Reason for Visit * Reason Comments Return Visit Encounter Details Date Type Department Care Team (Late st Contact Info) Description 09/04/2023 10:30 AM EST Office Visit Gynecology/Obstetri [facility] [address] [facility] [place] [address] Erin Thurman MD [address] [place] [address] 37 weeks gestation of *; High-risk in [...] (group B Streptococcus carrier), +RV culture, currently Allergies Active Allergy Reactions Criticality Noted Date [...] gestation and continue until delivery. 3 03/28/2023 3 Active Comfort Touch BP Cuff/LargeIndicati ons:HTN, goal below 140/90 Use as directed. 1 Each 0 03/28/2023 Active Artaic Verio Flex System w/Device KitIndications:Ges tational diabetes [...] every 12 hours as instructed by the [facility] 24 mL 5 07/24/2023 Active Additional Information Patient not taking.Reported on 09/04/2023 Heparin Sodium (Porcine) 34847 UNIT/ML Injection SolutionIndication s:History of pulmonary embolism,Factor V Leiden mutation affecting (HCC) Inject 1 mL under the skin in the morning and 1 mL before bedtime. As instructed by the [facility]. 60 mL 1 08/22/2023 [...] 18 weeks Nutrition consult scheduled 07/30/23 Has [employer] Light Lab Results Component Value Date/Time 50-G [...] 09/01/23: RPM not reporting blood sugars to MF for review; message sent to OB provider Last Assessment & Plan: Nor reporting sugars. Chronic hypertension in 03/28/2023 Overview: Patient states her BP has been up and down since teenage years In past , funeral car driver noted that BP was increased when awake, [...] assessment of proteinuria (24-hour urine protein or lbqyery-ub-miqmyjaakg ratio) and CBC, serum AST/ALT/creatinine. If patient [...] that the patient seeks follow-up by a Hospital Laboratory Technician and/or genetic counseling for further evaluation. This assay was verified and performance characteristics determined by the [facility]. This test is used for clinical purposes. .............................................. Ref:Emma Burton,Jose Enrique Cabrales,Shaheen Gilliam,Arianna Crockett, Kaelyn Lilly,Yane,R. Molecular Detection of a Common Mutation in [...] blood pressure and she was sent to [facility] for evaluation. Because of fetus is [...] money to get more. Never true 02/20/2023 [place] Depression Scale Answer Date Recorded [place] Depression Scale Total 1 02/20/2023 The thought [...] on file documented as of this encounter Last Filed Vital Signs Vital Sign Reading Time Taken Comments Blood Pressure 136/100 09/04/2023 9:13 AM EST Pulse - - Temperature - - Respiratory Rate - - Oxygen Saturation - - Inhaled Oxygen Concentration - - Weight - - Height 175.3 cm (5' 9") 09/04/2023 9:13 AM EST Body Mass Index - - documented in this encounter Functional Status Functional Status Response [...] as of this encounter Progress Notes * Erin Thurman MD - 09/04/2023 10:30 AM EST Patient is 37 year old at 37 3/7 weeks who presents for GRACE visit Denies contractions, leaking of fluid, or vaginal bleeding. Noted good movement Denies headache, blurry vision, RUQ or epigastric pain. Taking labetalol 100mg TID, was just increased last week. Per MFM LOT ATTENDANT "last reported her blood sugars to [facility] for review on 08/25/23 (1 value) and previously 08/19/23 (1 value)" Noted low KEMI per MFM today, wants induced this week if possible Did take her heparin this am, "had a feeling" Problem list reviewed BP 136/100 | Ht 1.753 m (5' 9") | LMP 12/16/2022 (Exact Date) | BMI 40.46 kg/m | BSA 2.46 m Plan: Labor and preeclampsia warnings reviewed MFM growth US today, results pending Encouraged patient to send sugars to [facility], as she has not been Sent to LD for delivery for low KEMI, elevated BP with CHTH not controlled on cureent dose of meds LD+D and supervisor carbon electrodes updated RTC V Cuca PETERSEN PhD documented in this encounter Nursing Notes * Val Lyman LPN - 09/04/2023 9:17 AM EST 37w3d US with MF prior to this visit. Feeling great, still working. Denies concerns. Is agreeable to induction any time. documented in this encounter Plan of Treatment Upcoming Encounters Date Type Department Care Team (Late st Contact Info) Description 09/09/2023 1:45 PM EST Office Visit Gynecology/Obstetrics [facility] [address] [facility] [place] [address] Carmen Vyas CRNP [address] [place] [address] Luis Manuel Non Stress Tests Mary [address] [place] [address] 09/16/2023 1:45 PM EST Office Visit Gynecology/Obstetrics [facility] [address] [place] [address] Carmen Vyas CRNP [address] [place] [address] Luis Manuel Non Stress Tests Mary [address] [place] [address] 09/23/2023 9:45 AM EST Office Visit Gynecology/Obstetrics [facility] [address] [place], [place] [address] Carmen Vyas CRNP [address] [place] [address] Luis Manuel Non Stress Tests Mary [address] [place] [address] Health Maintenance Due Date Last Done Comments [...] +RV culture, currently Supervision of other high-risk documented in this encounter Advance Directives Latest [...] the patient have Health Care Power of Manufacturing Systems Engineer? No Care Teams Resin Coater Relationship Specialty Start Date End Date Florence Fajardo PA-C [address] [facility] [place] [address] PCP - General Physician Cottage Cheese Maker 09/09/19 documented as of this encounter
--- OUTSIDE RECORDS SUMMARY | 2023-09-04 21:30 | External Medical Summary | Summary of Care ---
Author Name Unknown Organization [facility] Address [address] [place] [address] Phone [phone] Care Team Providers Care Telephone Operator Chief Name Role Phone Florence Fajardo PA-C Primary Care Provider +1- [phone] Reason for Visit * Reason Comments Return Visit Encounter Details Date Type Department Care Team (Late st Contact Info) Description 08/27/2023 1:45 PM EST Office Visit Gynecology/Obstetric s [facility] [address] [place] [address] Zuri Duncan, [facility] [address] [facility] [id number] Luis Manuel, Non Stress Tests Mary [address] [place] [address] Supervision of high-risk , unspecified trimester*; History of pulmonary embolism; Factor V Leiden mutation affecting (HCC); Obesity in , antepartum; History of macrosomia in in prior , currently ; Chronic hypertension in ; Diet controlled gestational diabetes mellitus (GDM) in third trimester; HTN, goal below 140/90 Allergies Active Allergy Reactions Criticality Noted Date Comments Bee Venom 11/30/2014 documented as of this encounter (statuses as of 08/27/2023) Medications Medication Sig Dispensed Refills Start Date End Date Status 19 29-1 MG Oral Tablet Chewable Take by mouth. 0 Active Comfort Touch BP Cuff/LargeIndicat ions:HTN, goal below 140/90 Use as directed. 1 Each 0 3 Active InSequentio Flex System w/Device KitIndications:Ge stational diabetes mellitus (GDM) in second trimester, gestational diabetes method of control unspecified Use to test blood sugars 4 times daily (fasting, 1 hour after breakfast, lunch, and dinner) 1 Kit 0 3 Active Omeprazole 20 MG Oral Capsule Delayed Release (PriLOSEC) Take 1 Capsule by mouth in the morning. 30 minutes before having anything to eat.. 90 Capsule 0 3 Active Aspirin 81 MG Oral Capsule Take by mouth. 0 Active FreeStyle Test In Vitro Strip (Glucose Blood)Indications :Diet controlled gestational diabetes mellitus (GDM) in third trimester Use to test blood sugar 4 times a day (fasting, one hour after breakfast, lunch, and dinner) 200 Strip 3 3 Active FreeStyle Unistick II LancetsIndication s:Diet controlled gestational diabetes mellitus (GDM) in third trimester Use to test blood sugar 4 times a day (fasting, one hour after breakfast, lunch, and dinner) 200 Each 3 3 Active Enoxaparin Sodium 40 MG/0.4ML Injection Solution Prefilled Syringe (Lovenox)Indicati ons:History of pulmonary embolism,Factor V Leiden mutation affecting (HCC) Inject 1 syringe every 12 hours as instructed by the [facility] 24 mL 5 3 Active Heparin Sodium (Porcine) 67707 UNIT/ML Injection SolutionIndicatio ns:History of pulmonary embolism,Factor V Leiden mutation affecting (HCC) Inject 1 mL under the skin in the morning and 1 mL before bedtime. As instructed by the [facility]. 60 mL 1 3 Active Syringe/Needle (Disp) 26G X 5/8" 3 MLIndications:His tory of pulmonary embolism,Factor V Leiden mutation affecting (HCC) Use as instructed to inject heparin twice daily 60 Each 1 3 Active Labetalol HCl 100 MG Oral Tablet (Normodyne)Indica tions:Supervision of high-risk , unspecified trimester,Chronic hypertension in ,HTN, goal below 140/90 Take 1 Tablet by mouth in the morning and 1 Tablet at noon and 1 Tablet before bedtime. 60 Tablet 6 3 Active Labetalol HCl 100 MG Oral Tablet (Normodyne)Indica tions:HTN, goal below 140/90 Take 1 Tablet by mouth in the morning and 1 Tablet before bedtime. 60 Tablet 6 3 08/27/20 Discontinu ed(Refill) Labetalol HCl 100 MG Oral Tablet (Normodyne)Indica tions:Supervision of high-risk , unspecified trimester,Chronic hypertension in ,HTN, goal below 140/90 Take 2 Tablets by mouth in the morning and 2 Tablets before bedtime. 60 Tablet 6 3 08/27/20 Discontinu ed(Refill) documented as of this encounter (statuses as of 08/27/2023) Active Problems Problem Noted Date Diagnosed Date LGA (large for gestational a ge) fetus affecting management of mother 07/11/2023 Overview: EFW and AC >99th %ile at 29 weeks GDM (gestational diabetes mellitus) 04/25/2023 Overview: Diagnosed at 18 weeks Nutrition consult scheduled 07/30/23 Has [facility] Lab Results Component Value Date/Time 50-G GESTATIONAL [...] sugars 08/25/23- msged patient to send sugars Last Assessment & Plan: CONSIDERATIONS: Reviewed etiology [...] Recommend nutrition consult with RDN (Registered Dietitian Editor Continuity And Script). Lifestyle changes are also indicated including optimizing [...] down since teenage years In past , cop examiner noted that BP was increased when awake, [...] assessment of proteinuria (24-hour urine protein or hspnblv-vm-psssesavlk ratio) and CBC, serum AST/ALT/creatinine. If patient [...] that the patient seeks follow-up by a Protective Services Case Worker and/or genetic counseling for further evaluation. This assay was verified and performance characteristics determined by the [facility]. This test is used for clinical purposes. [...] blood pressure and she was sent to [facility] for evaluation. Because of fetus is [...] as of this encounter (statuses as of 08/27/2023) Resolved Problems Problem Noted Date Diagnosed Date Resolved Date Glucose intolerance of 04/15/2023 04/25/2023 Supervision of high risk pre gnancy in second trimester 04/02/2023 04/02/2023 Pulmonary embolism and infarction 11/03/2017 05/07/2019 Pneumonia of both lungs due to infectious organism 11/03/2017 03/15/2022 Gastroesophageal reflux disease 11/03/2017 03/15/2022 HTN, goal below 140/90 11/03/201703/15 documented as of this encounter (statuses as of 08/27/2023) Immunizations Name Administration Dates Next Due DTaP [...] money to get more. Never true 02/20/2023 [place] Depression Scale Answer Date Recorded [place] Depression Scale Total 1 02/20/2023 The thought [...] Sign Reading Time Taken Comments Blood Pressure 158/90 08/27/2023 2:08 PM EST Pulse - - Temperature - - Respiratory Rate - - Oxygen Saturation - - Inhaled Oxygen Concentration - - Weight 124.3 kg (274 lb) 08/27/2023 2:08 PM EST Height 175.3 cm (5' 9") 08/27/2023 2:08 PM EST Body Mass Index 40.46 08/27/2023 2:08 PM EST documented in this encounter Functional Status Functional [...] as of this encounter Progress Notes * Zuri Duncan, MEREM - 08/27/2023 2:31 PM EST Renee Caldwell is a 37 year old female here for her routine OB appointment at 36w2d NST was Cat 2 (2 small variables), BPP was immediately done and was 6/8. BP 158/90: Reviewed with emergency medicine nurse practitioner , Dr. Mcallister who recommended she come to L&D for further /PIH evaluation. Pt was tearful as she did not want to miss her daughter's basketball scrimmage but agreed to go to L&D for further evaluation. Dr. Mcallister kindly agreed to obtain her GBS culture on L&D. Per Dr. Mcallister's recommendation, increased her labetelol to 100mg TID. ASSESSMENT assessment with Non-stress Test completed on 08/27/2023 at 36.2 weeks gestation for indication of gestational diabetes mellitus, obesity, and chronic hypertension heart baseline: 125 bpm Variability: Moderate Decelerations: present Accelerations: present Contractions: Irritability, (pt denies painful UCs) NST start time: 1359 NST stop time: 1426 NST strip reviewed, interpreted, and approved by OB provider, Zuri Duncan CNM NST strip stored in clinic storage file RTO in 1 week or PRN documented in this encounter Miscellaneous Notes * Addendum Note - Zuri Duncan CNM - 08/27/2023 4:47 PM ESTAddended by: ZURI DUNCAN on: 08/27/2023 04:47 PM Modules accepted: Orders documented in this encounter Plan of Treatment Upcoming Encounters Date Type Department Care Team (Late st Contact Info) Description 09/03/2023 1:45 PM EST Office Visit Gynecology/Obstetrics Libra Carrs [address] [place] [address] Carmen Vyas CRNP [address] [place] [address] Luis Manuel Non Stress Tests Mary [address] [place] [address] 09/04/2023 6:45 AM EST Anticoagulation Pharmacy Call Center WB [phone] [place] [address] [facility] [address] [facility] [place] [address] 09/04/2023 8:00 AM EST Imaging Maternal Medicine Imaging, Mary Carrs [address] [place] [phone] 09/09/2023 1:45 PM EST Office Visit Gynecology/Obstetrics Libra Issa [address] [place] [address] Carmen Vyas CRNP [address] [place] [address] Luis Manuel, Non Stress Tests Mary [address] [place] [address] 09/16/2023 1:45 PM EST Office Visit Gynecology/Obstetrics Libra Issa [address] [place] [address] Carmen Vyas CRNP [address] [place] [address] Luis Manuel Non Stress Tests Mary [address] [place] [address] 09/23/2023 9:45 AM EST Office Visit Gynecology/Obstetrics Libra Issa [address] [place] [address] Carmen Vyas CRNP [address] [place] [address] Luis Manuel Non Stress Tests Mary [address] [place] [address] Health Maintenance Due Date Last Done Comments Hepatitis B (1 of 3 - 3-dose series) 1986 COVID-19 Vaccine (#1) 05/25/1987 DTaP,Tdap,and Td Vaccines (6 - Tdap) 1997 02/29/1992, 06/18/1988, 06/13/1987, Additional history exists HPV/Co-Test 2016 Depression Screening 09/30/2018 09/30/2017 Influenza Vaccine (FLU shot) (#1) 2023 11/10/2017 (Declined) GFR 08/07/2024 08/07/2023, 01/28, 12/17/2017, Additional history exists Cervical Cancer Screening 03/15/2025 Pap Smear 03/15/2025 03/15/2022, 04/11/2016 Diabetes Screening 08/07/2026 08/07/2023, 1 10/07/2022, 02/20/2023, Additional history exists GARDASIL-HPV IMMUNIZATION SERIES Aged [...] Not on filedocumented as of this encounter Results * US BPP W/O NON-STRESS TEST (08/27/2023 3:08 PM EST) Anatomical Region Laterality Modality Abdomen, Body Ultrasound 08/27/2023 3:22 PM EST Impressions 08/27/2023 3:19 PM EST IMPRESSION: 1. BPP score: 6 of 8. 2. Normal KEMI. 3. Vertex presentation. Narrative 08/27/2023 3:19 PM EST EXAM: US BPP W/O NON-STRESS TEST - 08/27/2023 3:08 pm HISTORY: non reactive NST TECHNIQUE: Sonographic examination performed. COMPARISON: ultrasound 02/20/2023 FINDINGS: GENERAL Due date on 1st ultrasound 02/20/2023 is 09/21/2023 so current gestational age 36 weeks 3 days. : Dougherty Presentation: Vertex heart rate: 130 bpm Amniotic Fluid: Normal KEMI: 16.1 cm which is slightly above the 50th percentile for this stage of . BIOPHYSICAL PROFILE breathing movement: 0 Gross body movement: 2 tone: 2 Qualitative AFV: 2 Total BPP score: 6 of 8. Procedure Note Gwyn Jimenez MD - 08/27/2023 EXAM: US BPP W/O NON-STRESS TEST - 08/27/2023 3:08 pm HISTORY: non reactive NST TECHNIQUE: Sonographic examination performed. COMPARISON: ultrasound 02/20/2023 FINDINGS: GENERAL Due date on 1st ultrasound 02/20/2023 is 09/21/2023 so current gestationalage 36 weeks 3 days. : Dougherty Presentation: Vertex heart rate: 130 bpm Amniotic Fluid: Normal KEMI: 16.1 cm which is slightly above the 50th percentile for this stage ofpregnancy. BIOPHYSICAL PROFILE breathing movement: 0 Gross body movement: 2 tone: 2 Qualitative AFV: 2 Total BPP score: 6 of 8. IMPRESSION IMPRESSION: 1. BPP score: 6 of 8. 2. Normal KEMI. 3. Vertex presentation. Zuri Duncan CNM RAD ULTRASOUND documented in this encounter Visit Diagnoses Diagnosis Supervision of high-risk , unspecified trimester- Primary History of pulmonary embolism Personal history of pulmonary embolism Factor V Leiden mutation affecting (HCC) Obesity in , antepartum Obesity complicating , childbirth, or the puerperium, antepartum condition or complication History of macrosomia in in prior , currently with other poor obstetric history Chronic hypertension in Benign essential hypertension complicating , childbirth, and the puerperium, unspecified as to episode of care Diet controlled gestational diabetes mellitus (GDM) in third trimester HTN, goal below 140/90 Unspecified essential hypertension Supervision of high-risk , unspecified trimester documented in this encounter Advance Directives Latest [...] the patient have Health Care Power of District Commercial Superintendent? No Care Teams Telephone Operator Chief Relationship Specialty Start Date End Date Florence Fajardo PA-C [address] [facility] [place] [phone] PCP - General Physician Detail Supervisor 09/09/19 documented as of this encounter
--- OUTSIDE RECORDS SUMMARY | 2023-09-04 21:30 | External Medical Summary | Summary of Care ---
Author Name Unknown Organization [facility] Address [address] [facility] [place] [address] Phone [phone] Care Team Providers Care Structures Technician Name Role Phone Florence Fajardo PA-C Primary Care Provider [phone]- [phone] Encounter Details Date Type Department Care Team (Late st Contact Info) Description 08/31/2023 Telephone [facility] [address] [place] [address] Lindsay Chaudhary MD [address] [place] [address] Allergies Active Allergy Reactions Criticality Noted Date Comments Bee Venom 11/30/2014 documented as of this encounter (statuses as of 08/31/2023) Medications Medication Sig Dispensed Refills Start Date [...] every 12 hours as instructed by the [facility] 24 mL 5 07/24/2023 Active Heparin Sodium (Porcine) 19365 UNIT/ML Injection SolutionIndication s:History of pulmonary embolism,Factor V Leiden mutation affecting (HCC) Inject 1 mL under the skin in the morning and 1 mL before bedtime. As instructed by the [facility]. 60 mL 1 08/22/2023 Active [...] as of this encounter (statuses as of 08/31/2023) Active Problems Problem Noted Date Diagnosed Date GBS (group B Streptococcus c arrier), +RV culture, currently 08/31/2023 LGA (large for gestational a ge) fetus affecting management of mother 07/11/2023 Overview: EFW and AC >99th %ile at 29 weeks GDM (gestational diabetes mellitus) 04/25/2023 Overview: Diagnosed at 18 weeks Nutrition consult scheduled 07/30/23 Has Freestyle [place] [facility] Results Component Value Date/Time 50-G [...] Recommend nutrition consult with RDN (Registered Dietitian Money Room Teller). Lifestyle changes are also indicated including optimizing [...] down since teenage years In past , cytopathologist noted that BP was increased when awake, [...] assessment of proteinuria (24-hour urine protein or pivshsl-db-pcfvmasfsi ratio) and CBC, serum AST/ALT/creatinine. If patient [...] that the patient seeks follow-up by a Leather Goods Sales Representative and/or genetic counseling for further evaluation. This assay was verified and performance characteristics determined by the [facility]. This test is used for clinical purposes. [...] blood pressure and she was sent to [facility] for evaluation. Because of fetus is large [...] as of this encounter (statuses as of 08/31/2023) Resolved Problems Problem Noted Date Diagnosed Date Resolved Date Glucose intolerance of 04/15/2023 04/25/2023 Supervision of high risk pre gnancy in second trimester 04/02/2023 04/02/2023 Pulmonary embolism and infarction 11/03/2017 05/07/2019 Pneumonia of both lungs due to infectious organism 11/03/2017 03/15/2022 Gastroesophageal reflux disease 11/03/2017 03/15/2022 HTN, goal below 140/90 11/03/201703/15 documented as of this encounter (statuses as of 08/31/2023) Immunizations Name Administration Dates Next Due DTaP [...] money to get more. Never true 02/20/2023 [place] Depression Scale Answer Date Recorded [place] Depression Scale Total 1 02/20/2023 The thought [...] encounter Miscellaneous Notes * Telephone Encounter - Lindsay Chaudhary MD - 08/31/2023 10:37 AM EST Please let her know her GBS culture was positive Will need AB during labor Thank you documented in this encounter Plan of Treatment Upcoming Encounters Date Type Department Care Team (Late st Contact Info) Description 09/04/2023 6:45 AM EST Anticoagulation Pharmacy Call Center [phone] [facility] [place] [address] [facility] [address] 60 [facility] [place] [address] 09/04/2023 8:00 AM EST Imaging Maternal Medicine Imaging, Mary Luis Manuel [address] [place] [phone] 09/04/2023 10:30 AM EST Office Visit Gynecology/Obstetrics [place] Luis Manuel [address] [place] [address] Erin Thurman MD [address] [place] [address] [place] [address] 09/09/2023 1:45 PM EST Office Visit Gynecology/Obstetrics Libra Carrs [address] [place] [address] Carmen Vyas CRNP [address] [place] [address] Luis Manuel Non Stress Tests Mary [address] [place] [address] 09/16/2023 1:45 PM EST Office Visit Gynecology/Obstetrics [place]to Luis Manuel [address] [place] [address] Carmen Vyas CRNP [address] [place] [address] Luis Manuel Non Stress Tests Mary [address] [place] [address] 09/23/2023 9:45 AM EST Office Visit Gynecology/Obstetrics Libra Issa [address] [place] [address] Carmen Vyas CRNP [address] [place] [address] Luis Manuel, Non Stress Tests Mary [address] [place] [address] Health Maintenance Due Date Last Done Comments [...] the patient have Health Care Power of Technology Adoption Manager? No Care Teams Structures Technician Relationship Specialty Start Date End Date Florence Fajardo PA-C [address] [address] [place] [phone] PCP - General Physician Real Estate Rep 09/09/19 documented as of this encounter
--- OUTSIDE RECORDS SUMMARY | 2023-09-04 21:30 | External Medical Summary | Summary of Care ---
Author Name Unknown Organization [facility] Address [address] [place] [address] Phone [phone] Care Team Providers Care Electromechanical Technician Name Role Phone Florence Fajardo PA-C Primary Care Provider +1- [phone] Reason for Visit * Reason Onset Date Comments Test Results 08/27/2023 Unexpected or In determinate Result Encounter Details Date Type Department Care Team (Late st Contact Info) Description 08/27/2023 Telephone Laboratory, [place] [address] [place] [address] Zuri Polanco, [facility] [address] [place] [address] Test Results (Unexpected or Indeterminate ... Allergies Active Allergy Reactions Criticality Noted Date Comments Bee Venom 11/30/2014 documented as of this encounter (statuses as of 08/27/2023) Medications Medication Sig Dispensed Refills Start Date End Date Status -1 MG Oral Tablet Chewable Take by mouth. 0 Active Comfort Touch BP Cuff/LargeIndicati ons:HTN, goal below 140/90 Use as directed. 1 Each 0 03/28/2023 Active The Hotel Barter NetworkTouch Verio Flex System w/Device KitIndications:Ges tational diabetes [...] every 12 hours as instructed by the [facility] 24 mL 5 07/24/2023 Active Heparin Sodium (Porcine) 05173 UNIT/ML Injection SolutionIndication s:History of pulmonary embolism,Factor V Leiden mutation affecting (HCC) Inject 1 mL under the skin in the morning and 1 mL before bedtime. As instructed by the [facility]. 60 mL 1 08/22/2023 [...] 2 Tablets before bedtime. 60 Tablet 6 08/27/2023 Active documented as of this encounter (statuses as of 08/27/2023) Active Problems Problem Noted Date Diagnosed Date LGA (large for gestational a ge) fetus affecting management of mother 07/11/2023 Overview: EFW and AC >99th %ile at 29 weeks GDM (gestational diabetes mellitus) 04/25/2023 Overview: Diagnosed at 18 weeks Nutrition consult scheduled 07/30/23 Has Freestyle [place] [facility] Results Component Value Date/Time 50-G [...] Recommend nutrition consult with RDN (Registered Dietitian Farm Equipment Mechanic Apprentice). Lifestyle changes are also indicated including optimizing [...] down since teenage years In past , proposal manager writer noted that BP was increased when awake, [...] assessment of proteinuria (24-hour urine protein or vqrqkro-vz-skxesghksm ratio) and CBC, serum AST/ALT/creatinine. If patient [...] that the patient seeks follow-up by a Jewelry Enameler and/or genetic counseling for further evaluation. This assay was verified and performance characteristics determined by the [facility]. This test is used for clinical purposes. [...] blood pressure and she was sent to [facility] for evaluation. Because of fetus is [...] money to get more. Never true 02/20/2023 [place] Depression Scale Answer Date Recorded [place] Depression Scale Total 1 02/20/2023 The thought [...] encounter Miscellaneous Notes * Telephone Encounter - Margaret Roth, RIRI - 08/27/2023 3:32 PM EST Terri- The radiologist discovered an unexpected or indeterminate finding on Renee Caldwell ([id number]) and asks that you review the following report. Study Type: US BPP W/O NON-STRESS TEST Date of Study: 08/27/2023 IMPRESSION: 1. BPP score: 6 of 8. 2. Normal KEMI. 3. Vertex presentation. Please respond to this encounter to acknowledge receipt of this message and take responsibility to ensure this report is reviewed. Thank you, RIRI Betancur Client Service Rep [facility] documented in this encounter Plan of Treatment Upcoming Encounters Date Type Department Care Team (Late st Contact Info) Description 09/03/2023 1:45 PM EST Office Visit Gynecology/Obstetrics Libra Issa [address] [place] [address] Carmen Vyas CRNP [address] [place] [address] Luis Manuel Non Stress Tests Mary [address] [place] [address] 09/04/2023 6:45 AM EST Anticoagulation Pharmacy Call Center [phone] [facility] [place] [address] [facility] 58 60 [facility] [place] [address] 09/04/2023 8:00 AM EST Imaging Maternal Medicine Imaging, Mary Issa [address] [place] [phone] 09/09/2023 1:45 PM EST Office Visit Gynecology/Obstetrics Libra Issa [address] [place] [address] Carmen Vyas CRNP [address] [place] [address] Luis Manuel Non Stress Tests Mary [address] [place] [address] 09/16/2023 1:45 PM EST Office Visit Gynecology/Obstetrics Libra Issa [address] [place] [address] Carmen Vyas CRNP [address] [place] [address] Luis Manuel Non Stress Tests Mary [address] [place] [address] 09/23/2023 9:45 AM EST Office Visit Gynecology/Obstetrics Libra Carrs [address] [place] [address] Carmen Vyas CRNP [address] [place] [address] Meme Issa Stress Tests Mary [address] [place] [address] Health Maintenance Due Date Last Done Comments [...] the patient have Health Care Power of Medical Record Assistant? No Care Teams Electromechanical Technician Relationship Specialty Start Date End Date Florence Fajardo PA-C [address] [place] [address] [place] [phone] PCP - General Physician Inventory Control Assistant 09/09/19 documented as of this encounter
--- OUTSIDE RECORDS SUMMARY | 2023-09-04 21:30 | External Medical Summary | Summary of Care ---
Author Name Unknown Organization [facility] Address [address] [place] [address] Phone [phone] Care Team Providers Care Hat Blocking Machine Operator Name Role Phone Florence Fajardo PA-C Primary Care Provider +1- [phone] Reason for Visit * Reason Comments Return Visit Encounter Details Date Type Department Care Team (Late st Contact Info) Description 08/27/2023 1:45 PM EST Office Visit Gynecology/Obstetric s [facility] Luis Manuel [address] [place] [address] Zuri Polanco, [facility] [address] [facility] [phone] Luis Manuel, Non Stress Tests Mary [address] [place] [address] Supervision of high-risk , unspecified trimester*; History [...] as directed. 1 Each 0 3 Active Trelliseio Flex System w/Device KitIndications:Ge stational diabetes mellitus [...] every 12 hours as instructed by the [facility] 24 mL 5 3 Active Heparin Sodium (Porcine) 88945 UNIT/ML Injection SolutionIndicatio ns:History of pulmonary embolism,Factor V Leiden mutation affecting (HCC) Inject 1 mL under the skin in the morning and 1 mL before bedtime. As instructed by the [facility]. 60 mL 1 3 [...] Tablets before bedtime. 60 Tablet 6 3 Active Labetalol HCl 100 MG Oral Tablet (Normodyne)Indica tions:HTN, goal below 140/90 Take 1 Tablet by mouth in the morning and 1 Tablet before bedtime. 60 Tablet 6 3 08/27/20 23 Discontinu ed(Refill) documented as of this encounter (statuses as of 08/27/2023) Active Problems Problem Noted Date Diagnosed Date LGA (large for gestational a ge) fetus affecting management of mother 07/11/2023 Overview: EFW and AC >99th %ile at 29 weeks GDM (gestational diabetes mellitus) 04/25/2023 Overview: Diagnosed at 18 weeks Nutrition consult scheduled 07/30/23 Has C2C [employer]I Software Lab Results Component Value Date/Time 50-G GESTATIONAL [...] Recommend nutrition consult with RDN (Registered Dietitian Ship Boss). Lifestyle changes are also indicated including optimizing [...] down since teenage years In past , sticker machine operator noted that BP was increased when awake, [...] assessment of proteinuria (24-hour urine protein or kgposjm-lv-owmivykfna ratio) and CBC, serum AST/ALT/creatinine. If patient [...] that the patient seeks follow-up by a Environmental Conservation Officer and/or genetic counseling for further evaluation. This assay was verified and performance characteristics determined by the [facility]. This test is used for clinical purposes. [...] blood pressure and she was sent to [facility] for evaluation. Because of fetus is large [...] money to get more. Never true 02/20/2023 [place] Depression Scale Answer Date Recorded [place] Depression Scale Total 1 02/20/2023 The thought [...] of this encounter Progress Notes * Zuri Polanco, CNM - 08/27/2023 2:31 PM EST Renee Caldwell is a 37 year old female here for her routine OB appointment at 36w2d NST was Cat 2 (2 small variables), BPP was immediately done and was 6/8. BP 158/90: Reviewed with broadcast operations manager , Dr. Mcallister who recommended she come to L&D for further /PIH evaluation. Pt was tearful as she did not want to miss her daughter's basketball scrimmage but agreed to go to L&D for further evaluation. Dr. Mcallister kindly agreed to obtain her GBS culture on L&D. Per Dr. Mcallister's recommendation, increased her labetelol to 200mg BID. ASSESSMENT assessment with Non-stress Test completed on 08/27/2023 at 36.2 weeks gestation for indication of gestational diabetes mellitus, obesity, and chronic hypertension heart baseline: 125 bpm Variability: Moderate Decelerations: present Accelerations: present Contractions: Irritability, (pt denies painful UCs) NST start time: 1359 NST stop time: 1426 NST strip reviewed, interpreted, and approved by OB provider, Zuri Polanco CNM NST strip stored in clinic storage file RTO in 1 week or PRN documented in this encounter Plan of Treatment Upcoming Encounters Date Type Department Care Team (Late st Contact Info) Description 09/03/2023 1:45 PM EST Office Visit Gynecology/Obstetrics Libra Issa [address] [place] [address] Carmen Vyas CRNP [address] [place] [address] Luis Manuel Non Stress Tests Mary [address] [place] [address] 09/04/2023 6:45 AM EST On License Of [facility] Call Center [address] [facility] [place] [address] [facility], [facility] [address] [facility] [place] [address] 09/04/2023 8:00 AM EST Imaging Maternal Medicine Imaging, Mary Issa [address] [place] [address] 09/09/2023 1:45 PM EST Office Visit Gynecology/Obstetrics Libra Issa [address] [place] [address] Carmen Vyas CRNP [address] [place] [address] Luis Manuel Non Stress Tests Mary [address] [place] [address] 09/16/2023 1:45 PM EST Office Visit Gynecology/Obstetrics Libra Carrs [address] [place] [address] Carmen Vyas CRNP [address] [place] [address] Luis Manuel, Non Stress Tests Mary [address] [place] [address] 09/23/2023 9:45 AM EST Office Visit Gynecology/Obstetrics Libra Issa [address] [place] [address] Carmen Vyas CRNP [address] [place] [address] Luis Manuel, Non Stress Tests Mary [address] [place] [address] Health Maintenance Due Date Last Done Comments [...] 2. Normal KEMI. 3. Vertex presentation. Zuri Cynthia Sherri [facility] RAD ULTRASOUND documented in this encounter Visit Diagnoses Diagnosis Supervision of high-risk , unspecified trimester- Primary History of pulmonary embolism Personal history of pulmonary embolism Factor V Leiden mutation affecting (HCC) Obesity in , antepartum Obesity complicating , childbirth, or the puerperium, antepartum condition or complication History of macrosomia in infant in prior , currently with other poor [...] the patient have Health Care Power of Ethnoarchaeologist? No Care Teams Hat Blocking Machine Operator Relationship Specialty Start Date End Date Florence Fajardo PA-C [address] [facility] [address] [place] [address] PCP - General Physician Dust Control Engineer 09/09/19 documented as of this encounter
--- OUTSIDE RECORDS SUMMARY | 2023-09-04 21:30 | External Medical Summary | Summary of Care ---
Author Name Unknown Organization [facility] Address [address] [facility] [place] [address] Phone [phone] Care Team Providers Care Durable Medical Equipment Technician Name Role Phone Florence Fajardo PA-C Primary Care Provider +1- [phone] Encounter Details Date Type Department Care Team (Late st Contact Info) Description 08/28/2023 Orders Only Gynecology/Obstetrics [facility]ra [facility] [address] [place] [address] Salomon Honeycutt MD [address] [place] [address] Allergies Active Allergy Reactions Criticality Noted Date Comments Bee Venom 11/30/2014 documented as of this encounter (statuses as of 08/28/2023) Medications Medication Sig Dispensed Refills Start Date [...] every 12 hours as instructed by the [facility] 24 mL 5 07/24/2023 Active Heparin Sodium (Porcine) 56559 UNIT/ML Injection SolutionIndication s:History of pulmonary embolism,Factor V Leiden mutation affecting (HCC) Inject 1 mL under the skin in the morning and 1 mL before bedtime. As instructed by the [facility]. 60 mL 1 08/22/2023 Active [...] as of this encounter (statuses as of 08/28/2023) Active Problems Problem Noted Date Diagnosed Date LGA (large for gestational a ge) fetus affecting management of mother 07/11/2023 Overview: EFW and AC >99th %ile at 29 weeks GDM (gestational diabetes mellitus) 04/25/2023 Overview: Diagnosed at 18 weeks Nutrition consult scheduled 07/30/23 Has Freestyle [place] [facility] Lab Results Component Value Date/Time 50-G [...] Recommend nutrition consult with RDN (Registered Dietitian Washer Meat). Lifestyle changes are also indicated including optimizing [...] down since teenage years In past , crane service technician noted that BP was increased when awake, [...] assessment of proteinuria (24-hour urine protein or fhpnemi-uw-buklxvvzho ratio) and CBC, serum AST/ALT/creatinine. If patient [...] that the patient seeks follow-up by a Camera Assembler and/or genetic counseling for further evaluation. This assay was verified and performance characteristics determined by the [facility] [employer] [facility]. This test is used for clinical purposes. [...] blood pressure and she was sent to [facility] for evaluation. Because of fetus is [...] as of this encounter (statuses as of 08/28/2023) Resolved Problems Problem Noted Date Diagnosed Date Resolved Date Glucose intolerance of 04/15/2023 04/25/2023 Supervision of high risk pre gnancy in second trimester 04/02/2023 04/02/2023 Pulmonary embolism and infarction 11/03/2017 05/07/2019 Pneumonia of both lungs due to infectious organism 11/03/2017 03/15/2022 Gastroesophageal reflux disease 11/03/2017 03/15/2022 HTN, goal below 140/90 11/03/201703/15 documented as of this encounter (statuses as of 08/28/2023) Immunizations Name Administration Dates Next Due DTaP [...] money to get more. Never true 02/20/2023 [place] Depression Scale Answer Date Recorded [place] Depression Scale Total 1 02/20/2023 The thought [...] No 10/28/2017 documented as of this encounter Plan of Treatment Upcoming Encounters Date Type Department Care Team (Late st Contact Info) Description 09/03/2023 1:45 PM EST Office Visit Gynecology/Obstetrics [address] [place] [address] Carmen Vyas CRNP [address] [place] [address] Luis Manuel Non Stress Tests Mary [address] [place], [place] [address] 09/04/2023 6:45 AM EST Anticoagulation Pharmacy Call Center [address] [facility] [place] [address] [facility], [facility] 58 60 [facility] [place] [address] 09/04/2023 8:00 AM EST Imaging Maternal Medicine Imaging, Mary Issa [address] [place] [phone] 09/09/2023 1:45 PM EST Office Visit Gynecology/Obstetrics Libra Issa [address] [place] [address] Carmen Vyas CRNP [address] [place], [place] [address] Luis Manuel Non Stress Tests Mary [address] [place] [address] 09/16/2023 1:45 PM EST Office Visit Gynecology/Obstetrics Libra Issa [address] [place] [address] Carmen Vyas CRNP [address] [place] [address] Luis Manuel Non Stress Tests Mary [address] [place] [address] 09/23/2023 9:45 AM EST Office Visit Gynecology/Obstetrics Libra Issa [address] [place] [address] Carmen Vyas CRNP [address] [place] [address] Issa, Non Stress Tests Mary [address] [place] [address] Health Maintenance Due Date Last Done Comments Hepatitis B (1 of 3 - 3-dose series) 1986 COVID-19 Vaccine (#1) 05/25/1987 DTaP,Tdap,and Td Vaccines (6 - Tdap) 1997 02/29/1992, 06/18/1988, 06/13/1987, Additional history exists HPV/Co-Test 2016 Depression Screening 09/30/2018 09/30/2017 Influenza Vaccine (FLU shot) (#1) 2023 11/10/2017 (Declined) GFR 08/07/2024 08/27/2023, 05/2023, 02/20/2023, Additional history exists Cervical Cancer Screening 03/15/2025 Pap Smear 03/15/2025 03/15/2022, 04/11/2016 Diabetes Screening 08/07/2026 08/27/2023, 1 10/07/2022, 08/07/2023, Additional history exists [...] Not on filedocumented as of this encounter Procedures Procedure Name Priority Date/Time Associated Diagnosis Comments CHEMISTRY-OUTSIDE Routine 08/27/2023 documented in this encounter Results * (ABNORMAL) CHEMISTRY-OUTSIDE (08/27/2023) Not all results display below - see scan for full detail OUTSIDE LAB (SEE SCANNED REPORT) Comment:SEE SCAN: URPCR, CMP ,CBCD CREATININE-OUTSID E LAB 0.48(L) 0.6 - 1.2 MG/DL OUTSIDE LAB (SEE SCANNED REPORT) EGFR-OUTSIDE LAB 126.2 ML/MIN/1.7 3M2 OUTSIDE LAB (SEE SCANNED REPORT) POTASSIUM-OUTSIDE LAB 3.6 3.5 - 5.1 MMOL/L OUTSIDE LAB (SEE SCANNED REPORT) GLUCOSE-OUTSIDE LAB 80 70 - 99 MG/DL OUTSIDE LAB (SEE SCANNED REPORT) HOURS FASTING OUTSID E LAB (SEE SCANNED REPORT) TRIGLYCERIDES-OUT SIDE LAB OUTSIDE LAB (SEE SCANNED REPORT) CHOLESTEROL-OUTSI DE LAB OUTSIDE LAB (SEE SCANNED REPORT) HDL-OUTSIDE LAB OUTS ANNELIESE LAB (SEE SCANNED REPORT) CHOL/HDL RATIO-OUTSIDE LAB OUTSIDE LA B (SEE SCANNED REPORT) LDL (CALCULATED)-OUTS ANNELIESE LAB OUTSIDE LAB (SEE SCANNED REPORT) LDL (DIRECT MEASURE)-OUTSIDE LAB OUTSIDE LAB (SEE SCANNED REPORT) HEMOGLOBIN, R3T-ZMARZCK LAB OUTSIDE LAB (SEE SCANNED REPORT) PHOSPHORUS-OUTSID E LAB OUTSIDE LAB (SEE SCANNED REPORT) PTH-OUTSIDE LAB OUTS ANNELIESE LAB (SEE SCANNED REPORT) MICROALBUMIN RATIO-OUTSIDE LAB OUTSIDE LA B (SEE SCANNED REPORT) PROTEIN, UA-OUTSIDE LAB OUTSIDE LAB (SEE SCANNED REPORT) HEMOGLOBIN-OUTSID E LAB 12.5 12.0 - 15.0 G/DL OUTSIDE LAB (SEE SCANNED REPORT) 08/27/2023 Salomon Honeycutt MD LABORATORY OUTSIDE LAB (SEE SCANNED REPORT) documented in this encounter Advance Directives Latest [...] the patient have Health Care Power of Etcher Electrolytic? No Care Teams Durable Medical Equipment Technician Relationship Specialty Start Date End Date Florence Fajardo PA-C [address] [facility] [address] [place] [address] PCP - General Physician Wooden Boat Builder 09/09/19 documented as of this encounter
--- OUTSIDE RECORDS SUMMARY | 2023-09-04 21:30 | External Medical Summary | Summary of Care ---
Author Name Unknown Organization [facility] Address [address] [facility] [place] [address] Phone [phone] Care Team Providers Care Instructional Technology Coach Name Role Phone Florence Fajardo PA-C Primary Care Provider +1- [phone] Encounter Details Date Type Department Care Team (Late st Contact Info) Description 08/07/2023 Telephone Gynecology/Obstetrics [facility] [address] [facility] [place] [address] Erin Thurman MD [address] [place] [address] Allergies Active Allergy Reactions Criticality Noted Date Comments Bee Venom 11/30/2014 documented as of this encounter (statuses as of 08/28/2023) Medications Medication Sig Dispensed Refills Start Date End Date Status 19 29-1 MG Oral Tablet Chewable Take by mouth. 0 Active Comfort Touch BP Cuff/LargeIndicat ions:HTN, goal below 140/90 Use as directed. 1 Each 0 03/28/2023 Active OneTouch Verio Flex System w/Device KitIndications:Ge stational diabetes mellitus [...] Strip 3 07/14/2023 Active FreeStyle Unistick II LancetsIndication s:Diet controlled [...] every 12 hours as instructed by the [facility] 24 mL 5 07/24/2023 Active documented as of this encounter (statuses as of 08/28/2023) Active Problems Problem Noted Date Diagnosed Date LGA (large for gestational a ge) fetus affecting management of mother 07/11/2023 Overview: EFW and AC >99th %ile at 29 weeks GDM (gestational diabetes mellitus) 04/25/2023 Overview: Diagnosed at 18 weeks Nutrition consult scheduled 07/30/23 Has Freestyle [place] [facility] Lab Results Component Value Date/Time 50-G [...] Recommend nutrition consult with RDN (Registered Dietitian Program Dir). Lifestyle changes are also indicated including optimizing [...] down since teenage years In past , dressage instructor noted that BP was increased when awake, [...] symptoms occur. Recommendations: Obtain baseline lab work SHAE (if not already done) with assessment of proteinuria (24-hour urine protein or bqwzdfm-kt-exjprjqaun ratio) and CBC, serum AST/ALT/creatinine. If patient [...] that the patient seeks follow-up by a Woods Manager and/or genetic counseling for further evaluation. This assay was verified and performance characteristics determined by the [facility] [employer]. This test is used for clinical purposes. .............................................. Ref:Emma Burton,Jose Enrique Cabrales,Shaheen Gilliam,Arianna Crockett, Kaelyn Lilly,Cynthia Che. Molecular Detection of a Common Mutation in [...] blood pressure and she was sent to [facility] for evaluation. Because of fetus is [...] money to get more. Never true 02/20/2023 [place] Depression Scale Answer Date Recorded [place] Depression Scale Total 1 02/20/2023 The thought [...] encounter Miscellaneous Notes * Telephone Encounter - Lyn Reza OSA - 08/08/2023 2:41 PM EST Spoke with pt, pt aware of appointments however she cancelled the one for next week, [facility] would [facility] either first thing in the AM or late in the day, I did offer the opening on the at 3pm however that appt does not work for the patient; I didn't see any other openings, please review and call pt to schedule NST next week. * Telephone Encounter - Lyn Reza OSA - 08/07/2023 3:32 PM EST Pt did not stop to check out after her appointment today. If she doesn't read her Cloudaccg Message with upcoming appointments I will try calling her tomorrow. * Telephone Encounter - Lyn Reza OSA - 08/07/2023 9:28 AM EST Scheduled weekly NSTs and sent Myg * Telephone Encounter - Jes Cosby LPN - 08/07/2023 8:31 AM EST Please help schedule patient NSTs. She will be in today for an appointment * Telephone Encounter - Jes Cosby LPN - 08/07/2023 8:31 AM EST ----- Message from Erin Thurman MD sent at 08/07/2023 7:06 AM EST ----- Regarding: GDM Looks like patient never kept her appointment with MFM for GDM management. She is not checking her sugars like she should, and baby is >99%tile. I'm really concerned she is actually uncontrolled GDM and needs insulin SHAE Can we get her a new appointment with [facility]/diabetes management shae? I put in labs for todays visit-as she never got her A1c. So can lab come over and get them, before MFM/she leaves ans we miss another chance Patient also needs to be set up for weekly NST starting at 32 weeks-she is 33 weeks now, These havenot been set up either. Can we work on scheduling this as I'm afraid she isnt going to schedule when she checks out Thanks! documented in this encounter Plan of Treatment Upcoming Encounters Date Type Department Care Team (Late st Contact Info) Description 09/03/2023 1:45 PM EST Office Visit Gynecology/Obstetrics Libra Issa [address] [place] [address] Carmen Vyas CRNP [address] [place] [address] Luis Manuel Non Stress Tests Mary [address] [place] [address] 09/04/2023 6:45 AM EST Anticoagulation Pharmacy Call Center WB [address] [facility] [place] [address] [place], [facility] [address] 60 [facility] [place] [address] 09/04/2023 8:00 AM EST Imaging Maternal Medicine Imaging, Mary Issa [address] [place] [address] 09/09/2023 1:45 PM EST Office Visit Gynecology/Obstetrics Libra Issa [address] [place] [address] Carmen Vyas CRNP [address] [place] [address] Luis Manuel Non Stress Tests Mary [address] [place] [address] 09/16/2023 1:45 PM EST Office Visit Gynecology/Obstetrics Libra Issa [address] [place] [address] Carmen Vyas CRNP [address] [place] [address] Luis Manuel Non Stress Tests Mary [address] [place] [address] 09/23/2023 9:45 AM EST Office Visit Gynecology/Obstetrics Libra Issa [address] [place] [address] Carmen Vyas CRNP [address] [place] [address] Luis Manuel, Non Stress Tests Mary [address] [place] [address] Health Maintenance Due Date Last Done Comments [...] the patient have Health Care Power of Contracts Advisor? No Care Teams Instructional Technology Coach Relationship Specialty Start Date End Date Florence Fajardo PA-C [address] [facility] [address] [facility] [place] [address] PCP - General Physician Fabric Worker Fitter 09/09/19 documented as of this encounter
[2023-09-04] MEDS ORDERED: PENICILLIN GK 6 MU in DEXTROSE 5% 250 ML IV ONE (23:00)
[2023-09-04] MEDS ORDERED: BUTORPHANOL TARTRATE 1 MG/ML VIAL IV PRN (23:29)
--- NOTE | 2023-09-04 23:32 | Obstetrical Progress Note ---
Date of Service September 04, 2023 Assessment & Plan Admission and Anticipated Discharge Date Admission Date: September 04, 2023 Subjective Patient is reevaluated. Started to feel contractions for the last 2 hours or so, pain level is 5-6/ 10, does not need pain meds, she plans to have bay without pain meds nor epidural VE; unchanged, cervix is still high and posterior, cervidil is in place FHR Categ [address] [facility] ctxs q 2-4 min, Plan to start PCN and Stadol if she would desire to for pain or sleep Remove cervidil at 02:30 after MN Continue to monitor closely Results & Data Vital Signs (Past 12 Hours) Vital Signs Temp Pulse Resp BP O2 Del Method 09/04/23 21:12 79 143/82 H 09/04/23 19:10 37.0 C 83 18 139/82 09/04/23 19:02 37.0 C 18 09/04/23 19:02 Room Air 09/04/23 16:17 84 136/68 09/04/23 16:01 80 147/97 H 09/04/23 13:20 37.0 C 16 133/83 09/04/23 13:12 82 133/83
[2023-09-05] MEDS: PENICILLIN GK 3 MU in DEXTROSE 5% 100 ML IV SCH ×5 (03:49→20:49)
[2023-09-05] MEDS: miSOPROStoL 50 MCG TAB PO SCH ×4 (07:55→21:07)
[2023-09-05] MEDS: LABETALOL HCL 200 MG TAB PO SCH ×2 (11:46→22:09)
--- NOTE | 2023-09-05 15:11 | Labor Progress Brief Note ---
Date of Service September 05, 2023 Assessment & Plan Admission and Anticipated Discharge Date Admission Date: September 04, 2023 Physical Exam Genitourinary: Manual OB Exam: + cervical dilation fingertip, + cervical effacement 50% and + station high OB Exam Monitor Tracing: + external FHT monitor used, + external uterine monitor used, + category I and + normal FHT variability I can barely reach her cervix on cervical exam. head is high. will continue ripening. Results & Data Vital Signs (Past 12 Hours) Vital Signs Temp Pulse Resp BP 09/05/23 14:30 83 126/75 09/05/23 11:44 36.7 C 86 20 133/85 09/05/23 07:30 36.8 C 20 09/05/23 07:15 81 131/81
[2023-09-05] MEDS ORDERED: DINOPROSTONE 10 MG INSERT PV ONE (22:16)
--- NOTE | 2023-09-05 22:41 | Labor Progress Brief Note ---
Date of Service September 05, 2023 Assessment & Plan Admission and Anticipated Discharge Date Admission Date: September 04, 2023 Physical Exam Genitourinary: Manual OB Exam: + cervical dilation fingertip, + cervical effacement 50% and + station high OB Exam Monitor Tracing: + external FHT monitor used, + external uterine monitor used, + category I and + normal FHT variability Cervix still posterior but softening. Cervidil 10 mg placed vaginally Results & Data Vital Signs (Past 12 Hours) Vital Signs Temp Pulse Resp BP 09/05/23 19:14 85 141/73 H 09/05/23 18:05 37.0 C 20 09/05/23 18:05 84 136/82 09/05/23 14:30 36.8 C 83 20 126/75 09/05/23 11:44 36.7 C 86 20 133/85
[2023-09-06] MEDS: miSOPROStoL 50 MCG TAB PO SCH ×3 (00:36→10:15)
[2023-09-06] MEDS: PENICILLIN GK 3 MU in DEXTROSE 5% 100 ML IV PRN ×6 (00:39→22:26)
[2023-09-06] MEDS ORDERED: OXYTOCIN 30 UNITS/NSS 30 UNITS/500 ML BAG IV PRN (08:15)
[2023-09-06] MEDS: LABETALOL HCL 200 MG TAB PO SCH ×2 (09:05→21:43)
--- NOTE | 2023-09-06 09:58 | Obstetrical Progress Note ---
Date of Service September 06, 2023 Assessment & Plan Admission and Anticipated Discharge Date Admission Date: September 04, 2023 Subjective Patient is reevaluated. She had PO Cytotecs yesterday and second Cervidil overnight, no ctxs/ LOF/VB VE; 1-2 cm/ 50%/-4, posterior, Cervidil was at introitus, came out Discussed the option of mechanical dilatation with Jackson balloon and oxytocin IV and patient agreed. She was placed in dorsolithotomy position and speculum was placed cervix was visualized and cleaned with Betadine solution. Cervix then disappears often and I was unable to insert Jackson catheter due to being posterior and high cervix. Then with bimanual exam Jackson was anterior to the cervix by myself and inflated with 35 mL of sterile water and attached to her anytime with tension. She tolerated the procedure well, heart rate is category 1, Plan to start oxytocin when nursing staff is available. Continue to monitor closely Results & Data Vital Signs (Past 12 Hours) Vital Signs Temp Pulse Resp BP 09/06/23 09:47 79 146/76 H 09/06/23 07:32 36.8 C 78 20 131/72 09/06/23 03:13 36.6 C 79 18 121/64 09/05/23 22:40 36.8 C 85 18 125/58 L
--- NOTE | 2023-09-06 15:55 | Obstetrical Progress Note ---
Date of Service September 06, 2023 Assessment & Plan Admission and Anticipated Discharge Date Admission Date: September 04, 2023 Subjective Patient is reevaluated. Jackson bulb come out with bloody mucus Oxytocin was started at 13:30, now at 8 miu/min FHR categ I VE: 4/ 50%/ -3, AROM'ed, bloody mucus, no fluid came, KEMI was 3.1 on 09/04 Continue to monitor closely Results & Data Vital Signs (Past 12 Hours) Vital Signs Temp Pulse Resp BP 09/06/23 14:56 36.8 C 79 18 135/77 09/06/23 14:28 75 134/70 09/06/23 13:59 18 09/06/23 13:59 18 09/06/23 13:46 73 135/69 09/06/23 11:45 37.1 C 18 09/06/23 11:36 75 136/68 09/06/23 09:47 79 146/76 H 09/06/23 07:32 36.8 C 78 20 131/72
--- NOTE | 2023-09-06 20:05 | Obstetrical Progress Note ---
Date of Service September 06, 2023 Assessment & Plan Admission and Anticipated Discharge Date Admission Date: September 04, 2023 Subjective Late entry from 19:05 Patient felt pressure VE; 5/ 50%/ -3, still posterior, FHR categ I Winston ctxs q 3-4 min, Oxytocin is at 10 miu/min Patient rates pain 7/10 Discussed pain management including epidural Patient declines all Continue to monitor Results & Data Vital Signs (Past 12 Hours) Vital Signs Temp Pulse Resp BP 09/06/23 19:01 36.6 C 75 18 147/89 H 09/06/23 18:00 74 18 145/73 H 09/06/23 17:01 36.7 C 70 18 135/75 09/06/23 16:00 75 131/77 09/06/23 14:56 36.8 C 79 18 135/77 09/06/23 14:28 75 134/70 09/06/23 13:59 18 09/06/23 13:59 18 09/06/23 13:46 73 135/69 09/06/23 11:45 37.1 C 18 09/06/23 11:36 75 136/68 09/06/23 09:47 79 146/76 H
--- NOTE | 2023-09-06 20:56 | Obstetrical Progress Note ---
Date of Service September 06, 2023 Assessment & Plan Admission and Anticipated Discharge Date Admission Date: September 04, 2023 Subjective Patient felt more pressure. VE; 5/ 70%/ -2, head is lower but cervix is still posterior FHR categ I Oxytocin at 16 miu/ min Continue to monitor closely Results & Data Vital Signs (Past 12 Hours) Vital Signs Temp Pulse Resp BP 09/06/23 20:06 88 135/93 09/06/23 19:01 36.6 C 75 18 147/89 H 09/06/23 18:00 74 18 145/73 H 09/06/23 17:01 36.7 C 70 18 135/75 09/06/23 16:00 75 131/77 09/06/23 14:56 36.8 C 79 18 135/77 09/06/23 14:28 75 134/70 09/06/23 13:59 18 09/06/23 13:59 18 09/06/23 13:46 73 135/69 09/06/23 11:45 37.1 C 18 09/06/23 11:36 75 136/68 09/06/23 09:47 79 146/76 H
[2023-09-06] MEDS: LACTATED RINGER'S 1,000 ML IV SCH ×2 (21:50→23:11)
[2023-09-06] MEDS ORDERED: fentaNYL citrate PF 100 MCG/2 ML VIAL ONE (21:55)
[2023-09-06] MEDS ORDERED: SODIUM CHLORIDE 0.9% PF INJ 10 ML VIAL ONE (21:56)
[2023-09-06] MEDS ORDERED: ePHEDrine sulfate 50 MG/ML AMP ONE (21:56)
[2023-09-06] MEDS ORDERED: LIDOCAINE 2%/EPINEPHRINE 1:200,000 20 ML PF ONE (21:56)
[2023-09-06] MEDS ORDERED: fentANYL 2 MCG/ML BUPIVacaine 0.125%-NSS 100ML BAG ONE (21:56)
[2023-09-06] MEDS ORDERED: BUPIVACAINE 0.25% PF 30 ML VIAL ONE (21:56)
--- NOTE | 2023-09-06 21:56 | Anesthesiology Consultation ---
Date of Service September 06, 2023 Assessment & Plan (1) Encounter for pre-operative examination: Chart Review Chart Review: Patient NOT seen in Pre Admission Testing and Acceptable Risk for Labor Epidural Consults Requested none History Height/Weight Height: 5 ft 9 in Weight: 124.284 kg Allergies Allergy/AdvReac Type Severity Reaction Status Date / Time No Known Allergies Allergy Unknown NONE Verified 08/29/09 20:44 Medications Home Medications Medication Instructions Recorded Confirmed Last Taken Multivit/Min/Iron/Fol Ac/Pren 1 tab PO DAILY ##0 08/29/09 Unknown ( Vitamin) heparin (porcine) 10,000 unit/mL 10,000 unit subcut Q12H 09/04/23 09/04/23 09/03/23 21:00 injection solution labetalol 100 mg tablet 200 mg PO BID 09/04/23 09/04/23 09/04/23 08:00 Active Medications Generic Name Dose Route Start Last Admin Trade Name Freq PRN Reason Stop Dose Admin Penicillin G Potassium 3 mu/ 106 mls @ 100 mls/hr 09/05/23 21:54 09/06/23 19:07 Dextrose IV 09/15/23 02:59 Infused Q4H PRN Infusion PRN Oxytocin 30 units in 500 mls @ 16 mls/hr 09/06/23 08:15 09/06/23 20:00 Pitocin 30 Units/Nss IV 09/08/23 08:14 0.96 units/hr .Q24H PRN 16 mls/hr Labor Induction/Augmentation Titration Protocol 0.96 UNITS/HR Labetalol HCl 200 mg 09/04/23 21:00 09/06/23 21:43 Labetalol Hcl 200 Mg Tab PO 10/04/23 20:59 200 mg BID LEONCIO Administration Past Medical History Medical History Factor 5 Leiden mutation, heterozygous Chronic hypertension affecting Social History Smoking Status: Never smoker Do You Dip or Chew Tobacco: No Hx Alcohol Use: No Hx Substance Use: No Physical Exam Vital Signs Last Vital Signs Temp 98.4 F 09/06/23 21:00 Pulse 72 09/06/23 21:01 Resp 18 09/06/23 21:00 BP 132/77 09/06/23 21:01 O2 Del Method Room Air 09/04/23 19:02 Testing Laboratory Results 09/04/23 13:17 09/04/23 13:17 Blood Type O Positive 09/04/23 13:17 Antibody Screen NEGATIVE 09/04/23 13:17
[2023-09-06] MEDS ORDERED: ePHEDrine sulfate 50 MG/ML AMP IV PRN (21:57)
[2023-09-06] MEDS ORDERED: NALOXONE HCL 1 MG in SODIUM CHLORIDE 0.9% 1,000 ML IV PRN (21:57)
[2023-09-06] MEDS ORDERED: fentaNYL citrate PF 100 MCG/2 ML VIAL EPI PRN (21:57)
[2023-09-06] MEDS ORDERED: SODIUM CHLORIDE 0.9% PF INJ 10 ML VIAL EPI STA (21:57)
[2023-09-06] MEDS ORDERED: LIDOCAINE 2%/EPINEPHRINE 1:200,000 20 ML PF EPI STA (21:57)
[2023-09-06] MEDS ORDERED: ROPIVACAINE 0.5% PF 5 MG/ML 20 ML VIAL EPI PRN (21:57)
[2023-09-06] MEDS ORDERED: BUPIVACAINE 0.25% PF 30 ML VIAL EPI PRN (21:57)
[2023-09-06] MEDS ORDERED: fentaNYL citrate PF 100 MCG/2 ML VIAL EPI STA (21:57)
[2023-09-06] MEDS ORDERED: fentANYL 2 MCG/ML BUPIVacaine 0.125%-NSS 100ML BAG EPI PRN (21:57)
[2023-09-06] MEDS ORDERED: NALBUPHINE HCL 5 MG in SYRINGE 0 ML IV PRN (21:57)
[2023-09-06] MEDS ORDERED: SODIUM CHLORIDE 0.9% PF INJ 10 ML VIAL EPI PRN (21:57)
[2023-09-06] MEDS ORDERED: LIDOCAINE 2% MPF LOCAL 5 ML VIAL EPI PRN (21:57)
[2023-09-06] MEDS ORDERED: diphenhydrAMINE 50 MG/ML VIAL IV PRN (21:57)
[2023-09-06] MEDS ORDERED: BUPIVACAINE 0.25% PF 30 ML VIAL EPI STA (21:57)
[2023-09-06] MEDS ORDERED: NALOXONE HCL 0.4 MG/1 ML VIAL/CARP IV PRN (21:57)
--- NOTE | 2023-09-06 21:59 | Obstetrical Progress Note ---
Date of Service September 06, 2023 Assessment & Plan Admission and Anticipated Discharge Date Admission Date: September 04, 2023 Subjective Patient is more painful and feels pressure VE; unchanged since last exam FHR categ I Louise ctxs q 2-3 min, last for only 20-30 seconds, Oxytocin is at 16 miu/min Recommended epidural and she accepted. Continue to monitor closely Results & Data Vital Signs (Past 12 Hours) Vital Signs Temp Pulse Resp BP 09/06/23 21:01 72 132/77 09/06/23 21:00 18 09/06/23 21:00 36.9 C 18 09/06/23 20:06 88 135/93 09/06/23 19:01 36.6 C 75 18 147/89 H 09/06/23 18:00 74 18 145/73 H 09/06/23 17:01 36.7 C 70 18 135/75 09/06/23 16:00 75 131/77 09/06/23 14:56 36.8 C 79 18 135/77 09/06/23 14:28 75 134/70 09/06/23 13:59 18 09/06/23 13:59 18 09/06/23 13:46 73 135/69 09/06/23 11:45 37.1 C 18 09/06/23 11:36 75 136/68
[2023-09-07] MEDS ORDERED: ACETAMINOPHEN 325 MG TAB PO PRN (02:38)
[2023-09-07] MEDS ORDERED: MEASLES, MUMPS & RUBELLA VIRUS VACCINE (MMR) VIAL SQ ONE (02:38)
[2023-09-07] MEDS ORDERED: OXYTOCIN 30 UNITS/NSS 30 UNITS/500 ML BAG IV PRN (02:38)
[2023-09-07] MEDS ORDERED: IBUPROFEN 600 MG TAB PO PRN (02:38)
[2023-09-07] MEDS ORDERED: DIPHTHERIA/TETANUS/PERTUSSIS Vaccine (Tdap, Age 7+yrs) 0.5mL SYR/VL IM ONE (02:38)
[2023-09-07] MEDS ORDERED: HYDROCORTISONE ACETATE 25 MG SUPP PR PRN (02:38)
[2023-09-07] MEDS ORDERED: BENZOCAINE 20% SPRY 85 APPLN/85 GM CAN EXT PRN (02:38)
--- NOTE | 2023-09-07 02:51 | Delivery Summary ---
Vaginal Delivery Summary Date of Service September 07, 2023 Vaginal Delivery Summary Patient was found to be fully dilated and desired to push. She pushed with few contractions and delivered the head in direct OP position, followed by the shoulders without traction. The baby was handed off to the mother. The cord was clampedx2 and cut at 1 minute. The vagina and perineum were checked and found to have small 2nd degree perineal laceration. Rectal exam was done and noted good sphincter tone. The gloves were changes. The vaginal mucosa was repaired with 2/0 vicryl and skin on subcuticular fashion. The placenta was delivered spontaneously as intact and complete. The uterus was explored and found to be empty. EBL was 500 ml. The fundus was firm The baby was a viable female infant, Apgars 8/9, the weight is pending The mother and the baby tolerated the procedure well. No complications happened and I was present during whole procedure.
[2023-09-07] MEDS ORDERED: CALCIUM CARBONATE 500 MG CHEWABLE TAB PO PRN (06:29)
[2023-09-07] MEDS: DOCUSATE SODIUM 100 MG CAP PO SCH ×2 (09:10→20:43)
[2023-09-07] MEDS: LABETALOL HCL 100 MG TAB PO SCH ×2 (09:10→20:43)
[2023-09-07] MEDS: FERROUS SULFATE 325 MG TAB PO SCH (09:11)
[2023-09-07] MEDS: PRENATAL VITAMIN 1 TAB PO SCH (09:11)
--- NOTE | 2023-09-07 09:25 | Anesthesia Procedure Note ---
Date of Service September 07, 2023 Anesthesia Post Epidural Note Vital Signs Vital Signs: Temp Pulse Resp BP Pulse Ox O2 Del Method 36.7 C 85 18 132/86 98 Room Air 09/07/23 07:00 09/07/23 07:00 09/07/23 07:00 09/07/23 07:00 09/07/23 07:00 09/07/23 07:00 Notes Mental Status: alert / awake / arousable Nausea / Vomiting: adequately controlled Pain: adequately controlled Airway Patency, RR, SpO2: stable & adequate BP & HR: stable & adequate Hydration State: stable & adequate Neuraxial Anesthesia: was administered and sensory block is resolving Anesthetic Complications: no major complications apparent Epidural: Removed without complications and With tip intact
[2023-09-07] MEDS: ENOXAPARIN INJ 40 MG/0.4 ML SYR SQ SCH ×2 (11:09→23:38)
[2023-09-08 06:37] LABS: Hematocrit (blood only) 27.8 % (37.0-47.0); Hemoglobin 9.6 g/dl (12.0-16.0); Mean Corpuscular Hemoglobin 30.6 pg (25.0-34.0); Mean Corpuscular Hgb Conc 34.5 g/dL (32.0-36.0); Mean Corpuscular Volume 88.5 fL (80.0-100.0); Mean Platelet Volume 9.9 fL (9.4-12.4); Platelet Count 241 K/uL (130-400); RDW Standard Deviation 45.1 fL (36.4-46.3); Red Blood Count 3.14 M/uL (4.20-5.40); White Blood Count 13.98 K/ul (4.8-10.8)
[2023-09-08] MEDS: LABETALOL HCL 100 MG TAB PO SCH (08:55)
[2023-09-08] MEDS: DOCUSATE SODIUM 100 MG CAP PO SCH (08:55)
[2023-09-08] MEDS: FERROUS SULFATE 325 MG TAB PO SCH (08:55)
[2023-09-08] MEDS: PRENATAL VITAMIN 1 TAB PO SCH (08:55)
[2023-09-08] MEDS: ENOXAPARIN INJ 40 MG/0.4 ML SYR SQ SCH (10:38)
--- NOTE | 2023-09-08 11:07 | Obstetrical Progress Note ---
Date of Service September 08, 2023 Subjective Ambulation: ambulating normally Voiding: no voiding problems Passing Gas:: Yes Diet Tolerance:: regular diet Lochia:: Small Feeding Type:: breast feeding Current Pain Level(1-10): 0 doing well. plans for d/c today Physical Exam Constitutional WD/WN, vitals as above Gastrointestinal (Abdomen) Inspection/Auscultation: abdomen normal to inspection abdomen soft and non-tender. fundus firm below U Musculoskeletal Extremities: extremities normal to inspection Skin no rashes, warm and dry Neurologic patellar DTR's 2+ bilat, sensation intact Psychiatric A+Ox3, euthymic affect Results & Data Vital Signs (Past 12 Hours) Vital Signs Temp Pulse Resp BP Pulse Ox O2 Del Method 09/08/23 09:02 36.7 C 76 20 135/85 96 09/08/23 08:00 36.7 C 76 20 135/85 96 Room Air 09/07/23 23:40 37.0 C 80 16 111/72 95 Room Air Laboratory Results 09/04/23 09/04/23 09/08/23 13:17 14:08 06:01 WBC 12.02 H 13.98 H RBC 4.01 L 3.14 L Hgb 12.3 9.6 L Hct 34.7 L 27.8 L MCV 86.5 88.5 MCH 30.7 30.6 MCHC 35.4 34.5 RDW Std Deviation 42.5 45.1 RDW Coeff of Tran 13.6 14.0 Plt Count 273 241 MPV 9.8 9.9 Sodium 135 L Potassium 3.7 Chloride 105 Carbon Dioxide 21 Anion Gap 9 BUN 8 Creatinine 0.64 Est Cr Clr Drug Dosing 171.6 Est GFR ( Amer) 133.1 Est GFR (Non-Af Amer) 114.8 BUN/Creatinine Ratio 12.5 Glucose 116 H POC Glucose 112 H Calcium 8.6 Total Bilirubin 0.5 AST 14 ALT 14 Alkaline Phosphatase 121 H Total Protein 6.1 Albumin 3.4 Globulin 2.7 Albumin/Globulin Ratio 1.3 Blood Type O Positive Antibody Screen NEGATIVE
[2023-09-08] MEDS ORDERED: bisacodyL 5 MG TABEC PO SCH (20:00)
[2023-09-09] MEDS ORDERED: bisacodyL 10 MG SUPP PR PRN (02:38)
== END 2023-09-08 11:55 | disposition home health service (06) | DRG 806 ==
LOC: 4S1 12:48 → 4E2 09-07 05:56